=== PATIENT | female | born 2005 | race Caucasian/White ===

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

== ENCOUNTER 2024-02-25 13:15 | Outpatient (REF) | payer MEDICAID, SELFPAY ==
--- NOTE | ~2024-02-25 | US_ITS ---
EXAMINATION: US DIAGNOSTIC ULTRASOUND BREAST, BILATERAL CLINICAL INFORMATION: 18-year-old female complaining of bilateral breast pain all over, worse behind the nipple regions . COMPARISON: 02/07/2019. TECHNIQUE: Ultrasound of both breasts was performed with real-time qureshi scale imaging and color Doppler. All 4 quadrants of both breasts was the retroareolar regions were scanned. FINDINGS: There is no focal suspicious finding. There is no solid mass, architectural abnormality, duct ectasia, or edema in the soft tissue planes. There are no cystic abnormalities. US/US breast BI limited mamm only IMPRESSION: Normal bilateral breast ultrasound. No ultrasound findings present to explain patient's symptomatology. Recommend clinical management. ASSESSMENT: BI-RADS 1: Negative RECOMMENDATION: 1. Patient should be managed based on the clinical impression.
== END 2024-02-25 13:16 | disposition home or self-care (01) ==
LOC: HO.MAMMO 13:15
PROVIDERS: PCP Family Medicine; Visit Provider Family Medicine
DX: N64.4 Mastodynia (principal)
CPT/HCPCS: 76642

== ENCOUNTER → 2024-02-25 13:18 | Outpatient (BNV) | payer MEDICAID, SELFPAY | PROVIDERS: PCP Family Medicine; Visit Provider Radiology Diagnostic Radiology | DX: N64.4 Mastodynia (principal) | CPT/HCPCS: 76641 ==

== ENCOUNTER 2024-06-08 16:19 | Outpatient (REF) | payer MEDICAID, SELFPAY ==
[2024-06-09 03:10] LABS: CT PCR NOT DETECTED (Not Detect.); NG PCR NOT DETECTED (Not Detect.)
== END 2024-06-08 16:20 | disposition home or self-care (01) ==
LOC: HO.HHCLNP 16:19
PROVIDERS: Visit Provider Advanced Practice Midwife
DX: Z11.3 Encounter for screening for infections with a predominantly sexual mode of transmission (principal)
CPT/HCPCS: 87491; 87591

== ENCOUNTER 2024-07-25 11:34 | Emergency (ER) | payer MEDICAID, SELFPAY ==
--- NOTE | ~2024-07-25 | XR_ITS ---
EXAMINATION: XR ANKLE, LEFT CLINICAL INFORMATION: Left-sided ankle pain COMPARISON: None available. TECHNIQUE: AP, lateral, and mortise views of the left ankle. FINDINGS: No fracture. Alignment is anatomic. No erosions. Joint spaces are maintained. Soft tissues are normal. XR/XR ankle LT min 3V IMPRESSION: No radiographic evidence of acute fracture or dislocation. Electronically signed by: Melissa Rosales MD 07/25/2024 02:18 PM EDT
--- NOTE | 2024-07-25 12:00 | ED_ITS ---
HPI - General Adult General Chief complaint: Extremity Injury, Lower Stated complaint: Ankle injury Time Seen by Provider: 07/25/24 12:28 Source: patient Mode of arrival: wheelchair Limitations: no limitations History of Present Illness ED Provider: Ny Jacobsen PA-C HPI narrative: 18 yo female presents to the ER for evaluation of left ankle pain and swelling after you tripped down 2 stairs yesterday at 15:00. She states she has been unable to ambulate on the ankle since then. She reports pain to both the inside and outside portions of her ankle. She denies any bruising or discoloration. She denies any foot pain, numbness or weakness. The pain in the foot is worse with plantar and dorsiflexion. She has not taken any medications for the pain. No other injuries MD complaint: Left ankle pain Onset (ago): day(s) (1) Location: left and lower extremity Radiation: non-radiation Severity: severe Quality: aching Pain Consistency: constant Relieving factors: immobilization and rest Exacerbating factors: movement Associated symptoms: denies other symptoms Treatments prior to arrival: none Related Data Previous Rx's ?Medication ?Instructions ?Recorded ibuprofen 600 mg tablet 600 mg PO Q8H PRN fever or pain 07/25/24 #14 tabs Allergies Allergy/AdvReac Type Severity Reaction Status Date / Time ondansetron Allergy Mild RASH Verified 07/25/24 12:04 [From ZOFRAN ( HYDROCHLORIDE)] amoxicillin [AMOXICILLIN] Allergy Unknown RASH Verified 07/25/24 12:04 Penicillins [PCN] Allergy Unknown RASH Verified 07/25/24 12:04 Review of Systems Review of Systems: Yes all other systems are reviewed and are negative [facility] Social History Social History Advance Directives: No Advance Directives Information Provided: No Do you have a plan to hurt others: No Plan Physical Exam ED Vital Signs: Vital Signs - 24 hr 07/25/24 12:01 07/25/24 14:08 07/25/24 14:54 Temperature 98.1 F 0 F L Pulse Rate 81 79 79 Respiratory Rate 18 16 16 Blood Pressure 125/63 112/83 112/83 Pulse Oximetry 99 100 100 Oxygen Delivery Method Room Air Room Air Room Air BMI result Body Mass Index 32.2 Appearance: Alert. Oriented X3. No acute distress. HEENT: normal inspection CVS: Normal heart rate and rhythm. Pulses normal. Respiratory: No respiratory distress. Skin: Skin warm and dry. Normal skin color. Normal skin turgor. No rashes. Extremities: Mild swelling of the ankle joint, mild tenderness of the medial malleolus and above the calcaneus there is a small area of soft tissue swelling and tenderness. No ecchymosis. No gross deformity. Foot is warm and well perfused. Nontender metatarsals. Pain with plantar flexion and dorsiflexion. Neuro: Oriented X 3. No motor deficit. No sensory deficit. Gait not tested due to pain Course Course Course Narrative: This is an RME done by LAZARA Samaniego: Additional HPI, ROS, PE not included below will be deferred to primary provider. 18 year old female with concerns of left- sided ankle pain (07/08) after catching herself falling downstairs yesterday afternoon with a/c numbness and tingling. Appearance: Alert.? Oriented X3.? No acute distress.?Presenting in wheelchair Head: Normocephalic, atraumatic, no step-offs or deformities Neck: Normal inspection.? Neck supple.? CVS: Normal heart rate and rhythm.? Pulses normal.? Respiratory: No respiratory distress.? Breath sounds normal.? Abdomen: Soft and nontender.? Skin: Skin warm and dry.? Normal skin color.? Normal skin turgor.? Extremities: No lower extremity edema.? No calf ttp. 5/5 strength to bilateral upper and lower extremities; Neuro: Oriented X 3.? No motor deficit.? No sensory deficit. CN 2-12 intact. Medical Decision Making Medical Decision Making MDM Narrative: 18-year-old female presents to the ER for evaluation of left ankle pain after she tripped down 2 stairs yesterday, twisting her ankle. Severe pain with ambulation since. She has some [id number] swelling on examination without any point tenderness or gross deformity. She is neurovascularly intact although reports pain with plantar and dorsiflexion. X-ray today does not show any acute fractures. She was placed in an Alex wrap and provided crutches for ankle sprain. NSAIDs sent to her pharmacy. Discussed rest, ice, compression, elevation and need for follow-up as needed. Stable for discharge home. Differential Diagnosis Differential Diagnoses: The differential diagnosis associated with the presentation includes Ankle sprain, ankle sprain, ankle fracture, foot fracture, foot contusion Independent Interpretation I performed an independent interpretation of an: Plain X-Ray Interpretation: No acute fracture Radiology Impression Discussion of test interpretation with radiology: I have reviewed the radiologist's reading. Radiologist Impression: EXAMINATION: XR ANKLE, LEFT CLINICAL INFORMATION: Left-sided ankle pain COMPARISON: None available. TECHNIQUE: AP, lateral, and mortise views of the left ankle. FINDINGS: No fracture. Alignment is anatomic. No erosions. Joint spaces are maintained. Soft tissues are normal. XR/XR ankle LT min 3V IMPRESSION: No radiographic evidence of acute fracture or dislocation. External Record Review External record reviewed: Prior outpatient radiology Prescription Management I considered prescription management with: Pain Medication Critical Care Time Critical Care Time Critical Care Time: No Discharge Plan Discharge Clinical Impression: Ankle sprain and strain Patient Disposition: Home, Self-Care Instructions: Ankle Sprain (DC) Additional Instructions: Your x-ray today was normal. Rest your ankle and elevate your foot when possible. Recommend ALEX wrap for support and compression. Use ice several times per day for the next 48 hours. You may bear weight as tolerated. If pain is too severe, use crutches until better. Take Motrin and/or Tylenol as needed for pain. Follow up with your doctor as needed. Prescriptions: New ibuprofen 600 mg tablet 600 mg PO Q8H PRN (Reason: fever or pain) Qty: 14 0RF Referrals: Tracy Saldana DO [Primary Care Provider] - Stand Alone Forms: Work/School Release Interventions: ED Discharge Assessment Last Done: 07/25/24 14:54 Discharge Date/Time: 07/25/24 14:54 Print Language: Sri Lankan
[2024-07-25 12:01] VITALS: BP 125/63; PULSE 81; RESP 18; TEMP 36.7; O2SAT 99; BMI 32.2
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
[2024-07-25 14:08] VITALS: BP 112/83; PULSE 79; RESP 16; O2SAT 100
[2024-07-25 14:54] VITALS: BP 112/83; PULSE 79; RESP 16; TEMP -17.7; TEMP 0; O2SAT 100
== END 2024-07-25 14:54 | disposition home or self-care (01) ==
PROVIDERS: Emergency Provider Emergency Medicine Emergency Medical Services; PCP Family Medicine
DX: S93.402A Sprain of unspecified ligament of left ankle, initial encounter (principal); M25.572 Pain in left ankle and joints of left foot; X50.1XXA Overexertion from prolonged static or awkward postures, initial encounter; Y93.89 Activity, other specified; Y92.89 Other specified places as the place of occurrence of the external cause; Y99.8 Other external cause status
CPT/HCPCS: 73610; 99283

== ENCOUNTER 2024-07-27 11:32 | Outpatient (REF) | payer MEDICAID, SELFPAY ==
--- NOTE | ~2024-07-27 | XR_ITS ---
EXAMINATION: XR FOOT, LEFT CLINICAL INFORMATION: Left foot injury with fall from 4 feet with pain and swelling of the distal medial foot COMPARISON: None available. TECHNIQUE: AP, lateral, and oblique views of the left foot. FINDINGS: The bones and soft tissues are normal. No fracture. Alignment is anatomic. Joint spaces are maintained. XR/XR foot LT min 3V IMPRESSION: Normal left foot. Electronically signed by: Irvin Nunez MD 07/27/2024 12:19 PM EDT
== END 2024-07-27 11:33 | disposition home or self-care (01) ==
LOC: HO.HHCX 11:32
PROVIDERS: Visit Provider Internal Medicine
DX: M79.672 Pain in left foot (principal)
CPT/HCPCS: 73630

== ENCOUNTER 2024-08-17 10:12 | Outpatient (AMB) | payer MEDICAID, SELFPAY ==
--- NOTE | 2024-08-17 10:15 | MHC.OFFVIS ---
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 Patient reports that she had jumps off of a couple of steps to avoid her from falling down the stairs. She presented to [facility] [place] ER the following day where xrays were taken and referred to orthopedics. Her pain is located at her achilles and she has an increase of pain with activity. She also has a tingling sensation. Finds some relief with ibuprofen. Allergies ondansetron [From ZOFRAN ( HYDROCHLORIDE)] Allergy (Mild, Verified 08/17/24 10:16) RASH amoxicillin [AMOXICILLIN] Allergy (Unknown, Verified 08/17/24 10:16) RASH Penicillins [PCN] Allergy (Unknown, Verified 08/17/24 10:16) RASH Medication List - Last Reconciled 08/17/24 by Shellie Pappas PA-C ibuprofen 600 mg PO Q8H PRN PFSH Social History (Updated 08/17/24 @ 10:17 by ARMANI Aguirre) Patient Tobacco Use Status: Never used Tobacco Current occupational status: employed Current occupation: [employer] Review of Systems Const All systems reviewed & are unremarkable except as noted in HPI and below Physical Exam Vital Signs: BMI result Body Mass Index 32.2 Const General: cooperative and no acute distress Orientation/consciousness: patient oriented x3 Resp Effort & Inspection: normal respiratory effort and able to speak in complete sentences Cardio Peripheral pulses: Peripheral pulses 2+ throughout Neuro General: patient oriented x3 Extrem Other: Left foot is normal to inspection there is mild tenderness over the anterior talofibular ligament no instability noted. She has tenderness over the insertion point of the Achilles onto the calcaneus there is no notable defect negative Baptiste's no tenderness over the medial or lateral malleolus neurovascularly intact Results Reviewed Results Reviewed: X-rays of the left foot and ankle obtained on 07/27 are negative for acute or chronic abnormalities. 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 She will return on 08/19 with limitations of no prolonged standing for more than 3 hours at a time she should also alternate with sitting duties if available. She will increase activities as tolerated and see me back as needed. Orders: Orders PT Evaluation and Treatment Today M76.62 - Achilles tendinitis, left leg, S93.402A - Sprain of unspecified ligament of left ankle, initial encounter Coding Level of Care Code New Pt Level 3 (63803) Complex EM visit Add On G2211 Diagnoses Achilles tendinitis of left lower extremity M76.62 Left ankle sprain S93.402A
[2024-08-17 10:22] VITALS: BMI 32.2
== END 2024-08-17 10:46 | disposition home or self-care (01) ==
PROVIDERS: PCP Family Medicine; Visit Provider Physician Assistant
DX: M76.62 Achilles tendinitis, left leg (principal); S93.402A Sprain of unspecified ligament of left ankle, initial encounter
CPT/HCPCS: 99203

== ENCOUNTER → 2024-08-17 10:12 | Outpatient (BNVA) | payer MEDICAID, SELFPAY | PROVIDERS: PCP Family Medicine; Visit Provider Physician Assistant | DX: M76.62 Achilles tendinitis, left leg (principal); S93.402A Sprain of unspecified ligament of left ankle, initial encounter; X50.1XXA Overexertion from prolonged static or awkward postures, initial encounter; Y93.01 Activity, walking, marching and hiking; Y92.9 Unspecified place or not applicable; Y99.9 Unspecified external cause status | CPT/HCPCS: 99212 ==

== ENCOUNTER 2025-02-26 08:17 | Emergency (ER) | payer MEDICAID, SELFPAY ==
--- NOTE | ~2025-02-26 | XR_ITS ---
EXAMINATION: XR CHEST 2 VIEWS HISTORY: cough COMPARISON: There are no prior studies for comparison. FINDINGS: PA and lateral views of the chest are submitted. The lungs are expanded and clear. There is no pleural effusion, pneumothorax, or pulmonary vascular congestion. The heart is normal in size. The bones are intact. XR/XR chest 2V IMPRESSION: Normal examination of the chest. Electronically signed by: Mynor Rivera MD 02/26/2025 10:21 AM EDT
[2025-02-26 08:21] VITALS: BP 122/78; PULSE 93; RESP 16; TEMP 36.8; O2SAT 99; BMI 32.4
[2025-02-26 09:09] LABS: IDNOW Serial# 55D5AD1C; Strep A Nucleic Acid Negative (Negative)
[2025-02-26 09:31] LABS: Influenza A PCR NEGATIVE (Negative); Influenza B PCR NEGATIVE (Negative); Resp Syncy Virus RNA Qual PCR NEGATIVE (Negative); SARS COV2 PCR INHOUSE NEGATIVE (Negative)
--- NOTE | 2025-02-26 09:36 | ED_ITS ---
HPI - General Adult General Chief complaint: General Medical Stated complaint: Sore Throat Chest Pain Time Seen by Provider: 02/26/25 09:35 Source: patient and family (patient's mother) Mode of arrival: ambulatory Limitations: no limitations History of Present Illness ED Provider: Justine Hickey PA-C HPI narrative: Patient is a 19 year old assigned female at with no reported medical history presenting to the emergency department today with a cough, fever, headache, body aches, nausea, vomiting, and sore throat. Patient states that over the last 4 days she has had a cough, intermittent fever, body aches, headache, sore throat, nausea, and vomiting. Patient denies any dizziness, lightheadedness, abdominal pain, blurry vision, double vision, loss of vision, chest pain, difficulty breathing, shortness of breath, back pain, night sweats, pain with urination, increased urinary frequency, increased urinary urgency, blood in her urine or stool, syncope or a near syncopal episode, recent trauma or falls, bowel incontinence, bladder incontinence, or any other complaints at this time. Onset (ago): day(s) (4) Relieving factors: none Exacerbating factors: none Associated symptoms: cough, fever/chills, headaches and nausea/vomiting Treatments prior to arrival: none Related Data Previous Rx's ?Medication ?Instructions ?Recorded ibuprofen 600 mg tablet 600 mg PO Q8H PRN fever or pain 07/25/24 #14 tabs Allergies Allergy/AdvReac Type Severity Reaction Status Date / Time ondansetron Allergy Mild RASH Verified 02/26/25 08:22 [From ZOFRAN ( HYDROCHLORIDE)] amoxicillin [AMOXICILLIN] Allergy Unknown RASH Verified 02/26/25 08:22 Penicillins [PCN] Allergy Unknown RASH Verified 02/26/25 08:22 iodine Allergy Hives Verified 02/26/25 08:23 Review of Systems Constitutional: Constitutional: Reports no additional constitutional complaints, Reports body ache(s), Denies chills, Reports fever(s), Reports headache(s) and Denies night sweats Eyes: Eyes: Reports no additional eye complaints, Denies blurry vision, Denies change in vision, Denies diplopia, Denies eye discharge, Denies loss of vision and Denies eye pain ENT: Denies dizziness, Reports headache(s) and Reports sore throat Cardiovascular: Cardiovascular: Reports no additional cardiovascular complaints, Denies chest pain, Denies lightheadedness, Denies Loss of Consciousness and Denies dyspnea Respiratory: Respiratory: Reports no additional respiratory complaints, Reports cough and Denies dyspnea Gastrointestinal: Gastrointestinal: Reports no additional gastrointestinal complaints, Denies abdominal pain, Denies melena, Denies hematochezia, Denies change in bowel habits, Denies change in stool character, Reports nausea and Reports vomiting Genitourinary: Genitourinary: Denies hematuria, Denies urinary frequency, Denies dysuria, Denies urinary incontinence, Denies urinary hesitancy and Denies urinary urgency Musculoskeletal: Musculoskeletal: Reports no additional musculoskeletal complaints, Denies numbness and Denies tingling Neurologic: Denies dizziness, Reports headache(s), Denies loss of vision, Denies numbness and Denies tingling Psychiatric: Psychiatric: Reports no additional psychiatric complaints Endocrine: Endocrine: Reports no additional endocrine complaints Hematologic/Lymphatic: Hematologic/Lymphatic: Reports no additional hematologic/lymphatic complaints Allergic/Immunologic: Allergic/Immunologic: Reports no additional allergic/immunologic complaints PMFSH Past Medical History Attestation statement: The following information was validated with the patient. (patient's mother validated all information) Source: old records reviewed, obtained from family (patient's mother provided additional history and confirmed the history provided by the patient.) and nursing notes reviewed Social History Social History Patient Tobacco Use Status: Never used Tobacco Current occupational status: employed Current occupation: [employer] Physical Exam ED Vital Signs: Vital Signs - 24 hr 02/26/25 08:21 02/26/25 11:40 Temperature 98.3 F 98.3 F Pulse Rate 93 93 Respiratory Rate 16 16 Blood Pressure 122/78 122/78 Pulse Oximetry 99 99 Oxygen Delivery Method Room Air Room Air BMI result Body Mass Index 32.4 Const General: cooperative, no acute distress, alert and awake Nutritional Appearance: well nourished Orientation/consciousness: patient oriented x3 Limitations: no limitations HENMT Head: Yes normal to inspection and Yes atraumatic Ears: hearing grossly normal bilaterally and external ears normal General nose exam: Normal external nose present, no nasal discharge noted and no epistaxis Face and sinus: Yes normal facial exam, No abrasion and No laceration Mouth: Normal oral and palatal mucosa present, no drooling and no muffled voice Eyes General: appearance normal, both eyes and all related structures Periorbital: periorbital findings normal Eyelids: Yes eyelids normal Conjunctivae: conjunctivae normal Pupils: Equal, round and reactive pupils present EOM: EOMs intact bilaterally Neck Neck: Yes normal visual inspection, Yes full ROM and Yes no lymphadenopathy Chest Chest palpation & inspection: normal inspection of the chest Resp Effort & Inspection: normal respiratory effort and able to speak in complete sentences GI Inspection: Yes normal to inspection Neuro General: patient oriented x3, moves all extremities and CN's II-XI intact bilaterally Cranial nerves: Yes Equal, round and reactive pupils present Cognition (Neuro): normal cognition Extrem General: Yes normal to inspection, Yes full ROM and Yes capillary refill normal Psych Appearance: grossly normal Mental Status: mental status grossly normal Affect: normal affect Attitude: cooperative Thought process: Normal thought process present Thought content: Normal thought content present Insight: Good insight present (Psych) Medications Administered Discontinued Medications Generic Name Dose Route Start Last Admin Trade Name Freq PRN Reason Stop Dose Admin Dexamethasone Sodium Phosphate 10 mg 02/26/25 09:56 02/26/25 10:04 Dexamethasone Sod Phosphate 10 Mg/Ml Vial PO 02/26/25 09:57 10 mg ONCE ONE Administration Medical Decision Making Medical Decision Making MDM Narrative: Patient is a 19 year old assigned female at with no reported medical history presenting to the emergency department today with a cough, fever, headache, body aches, nausea, vomiting, and sore throat. Patient's physical exam was unremarkable. Patient's COVID-19, influenza, RSV, strep, and mono testing was negative. Patient's chest x-ray showed no acute process. I explained my physical exam findings as well as all test results to the patient and the patient's mother. I answered all questions asked by the patient and the patient's mother. Patient's clinical presentation is most consistent with a viral illness. I stressed the importance of the patient taking her medication as directed (either prescribed or as the over the counter packaging recommends). I stressed the importance of the patient following up with her primary care provider. I stressed the importance of the patient returning to the emergency department immediately if her symptoms were to worsen or if she were to develop any dizziness, shortness of breath, difficulty breathing, chest pain, blurry vision, loss of vision, nausea, vomiting, abdominal pain, fever, chills, back pain, or any other complaints. Patient verbalized agreement and understanding with this treatment plan and discharge. Differential Diagnosis Differential Diagnoses: The differential diagnosis associated with the presentation includes Cough Headache Viral illness COVID-19 Influenza RSV Pharyngitis Strep pharyngitis Mononucleosis Admission/Observation Consideration of admission/observation: Escalation of care including admission/observation considered Patient would have been admitted to the hospital had her work up had any findings where hospital admission was appropriate and her clinical presentation warranted hospital admission. Lab Data [facility] Lab Attestation statement: I reviewed the patient's lab results. My interpretation of these results are in the [facility] Rationale portion of this note. Labs: Lab Results 02/26/25 02/26/25 Range/Units 08:45 10:22 Monoscreen Negative (Negative) Influenza Type A (PCR) NEGATIVE (Negative) Influenza Type B (PCR) NEGATIVE (Negative) RSV RNA Qual (PCR) NEGATIVE (Negative) SARS-CoV-2 RNA (RT-PCR) NEGATIVE (Negative) S. pyogenes GrpA LATRELL Negative (Negative) Independent Interpretation I performed an independent interpretation of an: Plain X-Ray Interpretation: My interpretation is in agreement with the radiologist's impression of this imaging study. EXAMINATION: XR CHEST 2 VIEWS HISTORY: cough COMPARISON: There are no prior studies for comparison. FINDINGS: PA and lateral views of the chest are submitted. The lungs are expanded and clear. There is no pleural effusion, pneumothorax, or pulmonary vascular congestion. The heart is normal in size. The bones are intact. XR/XR chest 2V IMPRESSION: Normal examination of the chest. Electronically signed by: Mynor Rivera MD 02/26/2025 10:21 AM EDT Dictated By: Mynor Rivera MD Signed By: Electronically signed by Mynor Rivera MD 02/26/25 1021 Radiology Impression Discussion of test interpretation with radiology: I have reviewed the radiologist's reading. Independent Historian Clinical information obtained from an independent historian. History obtained from or confirmed by: Parent (patient's mother provided additional history and confirmed the history provided by the patient.) Discharge Plan Discharge Clinical Impression: Upper respiratory infection, viral Patient Disposition: Home, Self-Care Instructions: Upper Respiratory Infection (DC), Viral Syndrome (ED) Additional Instructions: Your work up today was unremarkable. However, it is evident with your clinical presentation that you are suffering from a viral illness. Please continue to take tylenol + ibuprofen for your fever / body aches and stay hydrated with electrolyte containing fluid like Gatorade or Powerade. Follow up with your primary care provider. Return to the emergency department immediately if your symptoms worsen or if you develop any numbness, tingling, dizziness, shortness of breath, difficulty breathing, chest pain, blurry vision, loss of vision, nausea, vomiting, abdominal pain, fever, chills, back pain, or any other complaints. Please see the information below about our Patient Portal. If you are not yet enrolled in the [facility] Patient Portal, you will receive an enrollment email invitation following your visit to any [facility] setting. You may also self-enroll in the Patient Portal by visiting our website: [email or web address] The following information is required to access the Patient Portal: - Your [facility] [place] - Your personal home email address (must match what is in your electronic medical record, Registration staff can assist with this) - Name - Date of Capabilities of the Patient Portal: - Message some providers - View upcoming appointments - Access your health summary, medical history, and visit history - View current conditions and allergies - View procedure and lab results - View your medications, including guidelines, side effects, and precautions - Complete pre-appointment questionnaires requested by your provider - Ready summary reports of your office visits and procedures To access the Patient Portal Mobile [employer], follow these directions: - Search [employer] in the Daxa Store or Google Play Store - Download the Daxa - Search for [facility] - Enter your login/password Prescriptions: No Action ibuprofen 600 mg tablet 600 mg PO Q8H PRN (Reason: fever or pain) Qty: 14 0RF Referrals: Tracy Saldana DO [Primary Care Provider] - Stand Alone Forms: Work/School Release Interventions: ED Discharge Assessment Last Done: 02/26/25 11:40 Discharge Date/Time: 02/26/25 11:40 Print Language: Lithuanian
[2025-02-26] MEDS: dexAMETHasone sod phosphate 10 MG/ML VIAL PO (10:04)
[2025-02-26 11:00] LABS: Monotest Negative (Negative)
[2025-02-26 11:40] VITALS: BP 122/78; PULSE 93; RESP 16; TEMP 36.8; O2SAT 99
== END 2025-02-26 11:40 | disposition home or self-care (01) ==
PROVIDERS: Physician Assistant Medical; Emergency Provider Emergency Medicine; PCP Family Medicine
DX: J06.9 Acute upper respiratory infection, unspecified (principal); R05.9 Cough, unspecified; Z03.818 Encounter for observation for suspected exposure to other biological agents ruled out
CPT/HCPCS: 0241U; 36415; 71046; 86308; 87651; 99282; 99283; J1100

== ENCOUNTER → 2025-02-26 09:56 | Outpatient (BNV) | payer MEDICAID, SELFPAY | PROVIDERS: Emergency Provider Emergency Medicine; PCP Family Medicine; Visit Provider Radiology Diagnostic Radiology | DX: R05.9 Cough, unspecified (principal) | CPT/HCPCS: 71046 ==

== ENCOUNTER 2025-05-31 13:37 | Outpatient (REF) | payer MEDICAID, SELFPAY ==
--- OUTSIDE RECORDS SUMMARY | 2025-05-31 13:46 | XMS_ITS | Encounter Summary ---
Author Organization [employer] Address [address] [place] [address] Care Team Providers Care Banking Officer Name Role Phone Tracy Saldana DO Primary Care Provider Encounter Details Date Type Department Care Team ([facility] st Contact Info) Description 06/05/2024 Telephone [facility] [address] [place], [place] [phone] Tracy Saldana DO [address] [place], [place] [phone] Social History Tobacco Use Types Packs/Day Years Used Date Smoking Tobacco: Never Passive Smoke Exposure: Never Smokeless Tobacco: Never Alcohol Use Standard Drinks/Week Comments Never 0 (1 standard drink = 0.6 oz pur e alcohol) Depression Answer Date Recorded Patient Health Questionnaire-9 Score 5 02/18/2024 Patient Health Questionnaire-9 Score 5 02/18/2024 Last PHQ-9: Questionnaire Data Not on file 0 02/18/2024 Housing Stability Answer Date Recorded What is your housing situation today? I have [place] 02/09/[address] you li ve. Do you have problems with any of the following? None of the above 02/09/2024 Food Insecurity Answer Date Recorded Within the past 12 months, y ou worried that your food would run out before you got money to buy more: Never True 02/09/2024 Within the past 12 months,th e food you bought just didn't last and you didn't have enough money to get more: Never True Transportation Answer Date Recorded In the past 12 months, has l ack of transportation kept you from medical appts, meetings, work or from getting things needed for daily living? No 02/09/2024 Utilities Answer Date Recorded In the past 12 months, has t he electric, gas, oil or water company threatened to shut off services in your home? No 02/09/2024 Depression Answer Date Recorded Patient Health Questionnaire-2 Score 0 02/18/2024 Comments Unknown Sex and Gender Information Value Date Recorded Sex Assigned at Female 09/28/2022 10:25 AM EDT Legal Sex Female 10:25 AM EDT Gender Identity Female 09/28/2022 10:25 AM EDT Sexual Orientation Bisexual 09/28/2022 10 :25 AM EDT documented as of this encounter Miscellaneous Notes * Telephone Encounter - Mary Beth Jimenes - 06/05/2024 11:29 AM EDT Tc from pt requesting to get nexplanon removed . Jacqueline Georges pt. documented in this encounter Plan of Treatment Upcoming Encounters Date Type Department Care Team (Late st Contact Info) Description 06/04/2025 9:15 AM EDT Office Visit [facility] [address] [place] [address] Tracy Saldana DO [address] [place] [address] documented as of this encounter Visit Diagnoses Not on filedocumented in this encounter Additional Health Concerns Assessment Noted Time PHQ-9 Depression Total Score: 5 02/18/20 24 11:44 AM EDT documented as of this encounter Care Teams Banking Officer Relationship Specialty Start Date End Date Tracy Saldana DO [address] [place] [address] PCP - General Family Medicine 04/04/13 documented as of this encounter
== END 2025-05-31 13:38 | disposition home or self-care (01) ==
LOC: HO.LAB 13:37
PROVIDERS: PCP Family Medicine; Visit Provider Family Medicine
DX: Z32.01 Encounter for pregnancy test, result positive (principal)
CPT/HCPCS: 36415; 84702

== ENCOUNTER 2025-06-12 13:19 | Outpatient (REF) | payer MEDICAID, SELFPAY ==
--- OUTSIDE RECORDS SUMMARY | 2025-06-12 14:42 | XMS_ITS | Encounter Summary ---
Author Organization [employer] Address [address] [facility] [address] [place] [address] Care Team Providers Care Meeting/Event Planner Name Role Phone Tracy Saldana DO Primary Care Provider Encounter Details Date Type Department Care Team ([facility] st Contact Info) Description 06/05/2024 Telephone [facility] [address] [place], [place] [phone] Tracy Saldana DO [address] [place], [place] [phone] Social History Tobacco Use Types Packs/Day Years [...] documented in this encounter Plan of Treatment Not on file documented as of this encounter Visit Diagnoses Not on filedocumented in this encounter Additional Health Concerns Assessment Noted Time PHQ-9 Depression Total Score: 5 02/18/20 24 11:44 AM EDT documented as of this encounter Care Teams Meeting/Event Planner Relationship Specialty Start Date End Date Tracy Saldana DO [address] [place] [address] PCP - General Family Medicine 04/04/13 documented as of this encounter
[2025-06-12 16:25] LABS: MANUAL DIFF FLAG NO
[2025-06-12 16:30] LABS: Hematocrit 41.5 % (37.0-47.0); Hemoglobin 14.0 g/dl (12.0-16.0); Imm Gran Abs Auto 0.01 X10*3/uL (0.00-0.03); Imm Gran Pct Auto 0.2 % (0.0-0.4); Lymphocytes Absolute Auto 1.4 X10*3/uL (1.2-4.9); Mean Corpuscular HGB Conc 33.7 g/dl (31.0-35.0); Mean Corpuscular Hemoglobin 29.1 pg (27.0-33.0); Mean Corpuscular Volume 86.3 fL (80.0-98.0); NRBC Abs Auto 0.000 X10*3/uL (0.0-0.012); NRBC Pct Auto 0.0 /100WBC (0.0-0.2); Platelet Count 298 X10*3/uL (160-400); Red Blood Count 4.81 X10*6/uL (4.20-5.50); White Blood Count 4.1 X10*3/uL (4.8-10.8)
[2025-06-12 16:52] LABS: Alanine Aminotransferase 24 U/L (0-31); Albumin Level 4.8 g/dL (3.5-5.0); Alkaline Phosphatase 53 U/L (39-117); Anion Gap 12 (12-20); Aspartate Amino Transferase 27 U/L (5-31); Blood Urea Nitrogen 10 mg/dL (9-16); Calcium 9.5 mg/dL (8.4-10.2); Carbon Dioxide 28 mmol/L (22-29); Chloride 107 mmol/L (96-108); Cholesterol 168 mg/dL (<200); Estimated Glomerular Filt Rate > 60; HDL Cholesterol 44 mg/dL (>40); Potassium 4.6 mmol/L (3.3-5.1); Sodium 142 mmol/L (135-145); Total Protein 7.7 g/dL (6.5-8.0); Triglycerides 101 mg/dL (<150)
[2025-06-12 16:55] LABS: Hemoglobin A1C 129.9401 umol/L; Total Hemoglobin (HGBA1C) 3660.0814 umol/L
[2025-06-12 17:10] LABS: Free T4 (Free Thyroxine) 0.98 ng/dL (0.71-1.85); Thyroid Stimulating Hormone 1.22 uIU/mL (0.32-4.0)
[2025-06-12 22:17] LABS: CT PCR Urine NOT DETECTED (Not Detect.); NG PCR Urine NOT DETECTED (Not Detect.)
[2025-06-13 04:15] LABS: HBS Num1 0.02 mIU/mL (0-7.99); HBc Num1 0.08 S/CO (0.00-0.79); HBsAGNum1 0.40 S/CO (0.00-0.99); HIV Num 1 0.06 S/CO (0.00-0.99); Hepatitis B Surface Antigen Negative (Negative); ~HepC Num1 0.25 S/CO (0.00-0.79); ~Hepatitis B Surface Antibody NONREACTIVE (Nonreactive); ~Hepatitis C Antibody Nonreactive (Nonreactive)
[2025-06-15 04:11] LABS: ~Hepatitis A Antibody IgG 9.15 S/CO (0.00-0.99)
== END 2025-06-12 13:20 | disposition home or self-care (01) ==
LOC: HO.HHCL 13:19
PROVIDERS: PCP Family Medicine; Visit Provider Family Medicine
DX: Z00.00 Encounter for general adult medical examination without abnormal findings (principal); Z11.4 Encounter for screening for human immunodeficiency virus [HIV]; Z11.59 Encounter for screening for other viral diseases; G43.909 Migraine, unspecified, not intractable, without status migrainosus; J30.2 Other seasonal allergic rhinitis; H54.7 Unspecified visual loss; D72.819 Decreased white blood cell count, unspecified; F41.9 Anxiety disorder, unspecified; F32.A Depression, unspecified; Z68.32 Body mass index [BMI] 32.0-32.9, adult
CPT/HCPCS: 36415; 80048; 80061; 80076; 82306; 83036; 84439; 84443; 84702; 85025; 86592; 86704; 86706; 86708; 86803; 87340; 87389; 87491; 87591

== ENCOUNTER 2025-08-14 20:42 | Emergency (ER) | payer MEDICAID, SELFPAY ==
--- NOTE | ~2025-08-14 | XR_ITS ---
CLINICAL HISTORY: pain and decreased sensation post injury - pt unable to move L thumb at all. Left wrist three views Comparison: None provided Findings: Distal ulna is dorsally positioned relative to radius. This may indicate acute soft tissue injury. There is no widening of radial ulnar space. No acute bony abnormality is identified. No radiopaque foreign body noted. Impression: Dorsal position of the distal ulna Question soft tissue injury No acute bony abnormality This document has been electronically signed by: Geraldo Alcantara MD on 08/14/2025 22:54:57
--- NOTE | ~2025-08-14 | XR_ITS ---
CLINICAL HISTORY: pain and decreased sensation post injury - pt unable to move L thumb at all. Left hand three views Comparison: None provided Findings: Limited study due to bony overlap. Distal phalanges never well visualized. First and 2nd digits overlap on all images. No definite bony abnormality identified. Impression: Limited study due to positioning and overlap First and 2nd digits overlap on all images No acute abnormality on limited study This document has been electronically signed by: Geraldo Alcantara MD on 08/14/2025 22:54:02
[2025-08-14 20:56] VITALS: BP 111/69; PULSE 89; RESP 16; TEMP 36.4; O2SAT 98; BMI 29.3
[2025-08-14 21:29] LABS: UPreg QC Valid YES
--- OUTSIDE RECORDS SUMMARY | 2025-08-14 22:02 | XMS_ITS | Encounter Summary ---
Author Organization [employer] Address [address] [place] [address] Care Team Providers Care Cosmetologist Name Role Phone Tiarra Saldanafer Primary Care Provider Encounter Details Date Type Department Care Team (Late st Contact Info) Description 08/14/2025 Orders Only GENERIC EXTERNAL DATA DEPARTMENT Provider, Generic External Data Social History Tobacco Use Types Packs/Day Years Used Date Smoking Tobacco: Never Passive Smoke Exposure: Never Smokeless Tobacco: Never Alcohol Use Standard Drinks/Week Comments Yes 0 (1 standard drink = 0.6 oz pur e alcohol) oca Depression Answer Date Recorded Patient Health Questionnaire-9 Score 11 06/04/2025 Patient Health Questionnaire-9 Score 11 06/04/2025 Last PHQ-9: Questionnaire Data Not on file 0 06/04/2025 Housing Stability Answer Date Recorded What is your housing situation today? I have [address]ielle [place] 04/26/[address] you li ve. Do you have problems with any of the following? None of the above 04/26/2025 Food Insecurity Answer Date Recorded Within the past 12 months, y ou worried that your food would run out before you got money to buy more: Never True 04/26/2025 Within the past 12 months,th e food you bought just didn't last and you didn't have enough money to get more: Never True Transportation Answer Date Recorded In the past 12 months, has l ack of transportation kept you from medical appts, meetings, work or from getting things needed for daily living? No 06/04/2025 Utilities Answer Date Recorded In the past 12 months, has t he electric, gas, oil or water company threatened to shut off services in your home? No 04/26/2025 Depression Answer Date Recorded Patient Health Questionnaire-2 Score 3 06/04/2025 Internet Access Answer Date Recorded Internet Access Q1 Yes 04/26/2025 Internet Access Q2 Not on file 04/26/2025 Comments No Sex and Gender Information Value Date Recorded Sex Assigned at Female 09/28/2022 10:25 AM EDT Legal Sex Female 10:25 AM EDT Gender Identity Female 09/28/2022 10:25 AM EDT Sexual Orientation Bisexual 09/28/2022 10 :25 AM EDT documented as of this encounter Plan of Treatment Not on file documented as of this encounter Procedures Procedure Name Priority Date/Time Associated Diagnosis Comments HCG, QL, URINE Routine 08/14/2025 9:17 PM EDT documented in this encounter Results * HCG, Qualitative, Urine (08/14/2025 9:17 PM EDT) Urine NEGATIVE NEGATIVE [facility] Comment:This test was develo ped to detect early . Falsenegative results may occur after the 5th - 7th week ofpregnancy when using this test method. If clinicallyindicated, consider a serum hCG. 08/14/2025 9:17 PM EDT 08/14/2025 9:21 PM EDT us Generic External Data Provider LAB URINE ORDERAB LES Final Result [facility] [address] [place] [phone] documented in this encounter Visit Diagnoses Not on filedocumented in this encounter Additional Health Concerns Assessment Noted Time PHQ-9 Depression Total Score: 11 025 1:41 PM EDT documented as of this encounter Care Teams Cosmetologist Relationship Specialty Start Date End Date Tracy Saldana DO [address] [place] [id number] PCP - General Family Medicine 04/04/13 documented as of this encounter
--- OUTSIDE RECORDS SUMMARY | 2025-08-14 22:02 | XMS_ITS | Encounter Summary ---
Author Organization [employer] Address [address] [facility] [address] [place] [address] Care Team Providers Care Metal Drawer Name Role Phone Tracy Saldana DO Primary Care Provider [phone] Reason for Visit * Reason Onset Date Comments Med Refill 07/23/2025 Encounter Details Date Type Department Care Team ([facility] st Contact Info) Description 07/23/2025 Refill [facility] [address] [place], [place] [phone] Tracy Saldana DO [address] [place] [address] Social History Tobacco Use Types Packs/Day Years [...] documented as of this encounter Care Teams Metal Drawer Relationship Specialty Start Date End Date Tracy Saldana DO [address] [place] [id number] PCP - General Family Medicine 04/04/13 documented as of this encounter
--- OUTSIDE RECORDS SUMMARY | 2025-08-14 22:02 | XMS_ITS | Clinical Summary ---
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 EDT Tracy Saldana DO LAB BLOOD ORDERABLES Final R esult [facility] [address] [place] [address] [phone] * Hepatic Function Panel (06/12/2025 1:26 PM EDT) [facility] Bilirubin, Total 0.4 0.0 - 1.0 mg/dL [facility] Bilirubin, Direct 0.2 0.0 - 0.5 mg/dL [facility] Aspartate Amino Transferase 27 5 - 31 U/L [facility] Alanine Aminotransferase 24 0 - 31 U/L [facility] Total Protein 7.7 6.5 - 8.0 g/dL [facility] Albumin Level 4.8 3.5 - 5.0 g/dL [facility] Alkaline Phosphatase 53 39 - 117 U/L [facility] Blood Venous blood specimen / Unknown 06/12/2025 1:26 PM EDT 06/12/2025 4:19 PM EDT us Tracy Saldana DO LAB BLOOD ORDERABLES Final R esult [facility] [address] [place] [phone] * (ABNORMAL) Lipid Panel, Standard (06/12/2025 1:26 PM EDT) Triglycerides 101 <150 mg/dL [facility] Comment:Desirable Triglyceri de: less than 150 mg/dLBorderline High Triglyceride 150-199 mg/dLHigh Triglyceride: 200-499 mg/dLVery High Triglyceride: greater than or equal to 5OO mg/dL Cholesterol 168 <200 mg/dL [facility] Comment:Desirable Cholestero l: less than 200 mg/dLBorderline High Cholesterol: 200-239 mg/dLHigh Cholesterol: greater than 239 mg/dL LDL Cholesterol Calculated 104(H) <100 mg/dL [facility] Comment:Desirable LDL: less than 100 mg/dLNear Optimal/Above Optimal LDL: 110- 129 mg/dLBorderline High LDL: 130-159 mg/dLHigh LDL: 160-189 mg/dLVery High LDL: greater than or equal to 190 mg/dL HDL Cholesterol 44 >40 mg/dL [facility] Comment:Desirable HDL: great er than 40 mg/dL Note: This HDL assay may give artificially low results in patients with liver disease. Blood Venous blood specimen / Unknown 06/12/2025 1:26 PM EDT 06/12/2025 4:19 PM EDT Tracy Les DO LAB BLOOD ORDERABLES Final R esult Performing Organization Address [facility] de Phone Number [facility] [address] [place] [phone] * Basic Metabolic Panel (06/12/2025 1:26 PM EDT) Sodium 142 135 - 145 mmol/L [facility] Potassium 4.6 3.3 - 5.1 mmol/L [facility] Chloride 107 96 - 108 mmol/L [facility] Carbon Dioxide 28 22 - 29 mmol/L [facility] Anion Gap 12 12 - 20 [facility] Urea Nitrogen (BUN) 10 9 - 16 mg/dL [facility] Creatinine, Serum 0.99 0.5 - 1.4 mg/dL [facility] Estimated Glomerular Filt Rate >60 [facility] Comment:Chronic Kidney Disea se: Estimated GFR < 60 mL/min/1.74h1Pemdlt Kidney Disease: Estimated GFR < 15 mL/min/1.73m2 Glucose 98 60 - 115 mg/dL [facility] Calcium 9.5 8.4 - 10.2 mg/dL [facility] Blood Venous blood specimen / Unknown 06/12/2025 1:26 PM EDT 06/12/2025 4:19 PM EDT Tracy Edgarkerri DO LAB BLOOD ORDERABLES Final R esult Performing Organization Address [facility] Co de Phone Number [facility] [address] [place] [phone] * Chlamydia/N. Gonorrhoeae RNA, TMA, Urogenitial (06/08/2024 10:53 AM EDT) CT PCR NOT DETECTED Not Detect. [facility] Comment:A not detected test result does not exclude the possibilityof infection because test results can be affected byimproper specimen collection, concurrent antibiotic therapy,or the number of organisms in the specimen which may bebelow the sensitivity of the test. As with many diagnostictests, results from the Xpert CT/NG assay should beinterpreted in conjunction with other laboratory andclinical data available to the clinician.Xpert CT/NG performance has not been evaluated in patientsless than 14 years of age. The assay should not be used forthe evaluationof suspected sexual abuse or for other medico-legalindications. Additional testing is recommended in anycircumstance when false positive or false negative resultscould lead to adverse medical, social or psychologicalconsequences. NG PCR NOT DETECTED Not Detect. [facility] Comment:A not detected test result does not exclude the possibilityof infection because test results can be affected byimproper specimen collection, concurrent antibiotic therapy,or the number of organisms in the specimen which may bebelow the sensitivity of the test. As with many diagnostictests, results from the Xpert CT/NG assay should beinterpreted in conjunction with other laboratory andclinical data available to the clinician.Xpert CT/NG performance has not been evaluated in patientsless than 14 years of age. The assay should not be used forthe evaluationof suspected sexual abuse or for other medico-legalindications. Additional testing is recommended in anycircumstance when false positive or false negative resultscould lead to adverse medical, social or psychologicalconsequences. Urine (Urine, Random) 06/08/2024 10:53 AM EDT 06/08/2024 4:20 PM EDT Narrative [facility] - 06/09/2024 3:10 AM EDT Urine us Jacqueline Georges [facility] MICROBIOLOGY - GENERA L ORDERABLES Final Result [facility] [address] [place] [phone] from Last 3 Months or Most Recently Relevant to Health Maintenance Insurance [facility] C3 Care Teams Die Technician Relationship Specialty Start Date End Date Tracy Saldana DO [address] [place] [phone] PCP - General Family Medicine 04/04/13
--- OUTSIDE RECORDS SUMMARY | 2025-08-14 22:02 | XMS_ITS | Encounter Summary ---
Author Organization [employer] Address [address] [facility] [address] [place] [address] Care Team Providers Care [employer] Field Technician Name Role Phone Tracy Saldana DO Primary Care Provider Encounter Details Date Type Department Care Team ([facility] st Contact Info) Description 06/05/2024 Telephone [facility] [address] [place], [place] [phone] Tracy Saldana DO [address] [place], [place] [phone] Social History Tobacco Use Types Packs/Day Years [...] documented as of this encounter Care Teams [employer] Field Technician Relationship Specialty Start Date End Date Tracy Saldana DO [address] [place] [address] PCP - General Family Medicine 04/04/13 documented as of this encounter
--- OUTSIDE RECORDS SUMMARY | 2025-08-14 22:02 | XMS_ITS | Encounter Summary ---
Author Organization [employer] Address [address] [facility] [address] [place] [address] Care Team Providers Care Application Development Specialist Name Role Phone Tracy Saldana DO Primary Care Provider [phone] Reason for Visit * Reason Onset Date Comments Med Refill 07/24/2025 Encounter Details Date Type Department Care Team ([facility] st Contact Info) Description 07/24/2025 Refill [facility] [address] [place], [place] [phone] Tracy Saldana DO [address] [place], [place] [phone] Social History Tobacco Use Types Packs/Day Years [...] documented as of this encounter Care Teams Application Development Specialist Relationship Specialty Start Date End Date Tracy Saldana DO [address] [place] [phone] PCP - General Family Medicine 04/04/13 documented as of this encounter
--- NOTE | 2025-08-14 23:28 | ED_ITS ---
HPI - Extremity Problem General Chief complaint: Extremity Injury, Upper Stated complaint: ?L thumb dislocation Time Seen by Provider: 08/14/25 22:35 Source: patient, family, RN notes reviewed and old records reviewed Mode of arrival: ambulatory Limitations: no limitations History of Present Illness ED Provider: Maria Fernanda HPI Narrative: 19-year-old female presents for evaluation of left thumb pain. Patient reports that she was trying to break a frozen hamburger patties from a block of frozen patties. She reports that while trying to force the burger free she felt a popping sensation in her left thumb as her thumb bent backwards She believes that she dislocated the thumb She reports numbness to the entire thumb and difficulty moving it Related Data Previous Rx's ?Medication ?Instructions ?Recorded ibuprofen 600 mg tablet 600 mg PO Q8H PRN fever or p ain 07/25/24 #14 tabs Allergies Allergy/AdvReac Type Severity Reaction Status Date / Time ondansetron (From ZOFRAN ( Allergy Mild RASH Verified 08/14/25 20:57 HYDROCHLORIDE)) amoxicillin (AMOXICILLIN) Allergy Unknown RASH Verified 08/14/25 20:57 Penicillins (PCN) Allergy Unknown RASH Verified 08/14/25 20:57 iodine Allergy Hives Verified 08/14/25 20:57 Review of Systems Constitutional: Constitutional: Denies chills, Denies fever(s) and Denies headache(s) ENT: Denies headache(s) Musculoskeletal: Musculoskeletal: Reports arthralgias, Reports joint swelling and Reports limited range of motion Neurologic: Denies headache(s) [facility] Social History Social History Patient Tobacco Use Status: Never used Tobacco Smoked in Last 30 Days: No Use of substances other than those prescribed or required for medical reasons: No Advance Directives: No Advance Directives Information Provided: No Patient : No Current occupational status: employed Current occupation: [employer] Physical Exam Vital Signs: Vital Signs: Last Vital Signs Temp 97.6 F 08/14/25 20:56 Pulse 89 08/14/25 20:56 Resp 16 08/14/25 20:56 BP 111/69 08/14/25 20:56 Pulse Ox 98 08/14/25 20:56 O2 Del Method Room Air 08/14/25 20:56 BMI result Body Mass Index 29.3 Const: General: healthy appearing, comfortable, no acute distress, alert and awake Nutritional Appearance: well nourished Orientation/consciousness: patient oriented x3 HEENT: Head: Yes normocephalic and Yes atraumatic Eyes: Eyelids: Yes eyelids normal Conjunctivae: conjunctivae normal Sclerae: sclerae normal Corneas: corneas normal Pupils: Equal, round and reactive pupils present EOM: EOMs intact bilaterally Neck: Neck: Yes full ROM Resp: Effort & Inspection: normal respiratory effort, able to speak in complete sentences and not labored Skin: General skin exam: elasticity normal Neuro: General: patient oriented x3 Cranial nerves: Yes Equal, round and reactive pupils present and Yes Bilaterally intact EOM present Cognition (Neuro): normal cognition Extrem: Other: The patient has edema with ecchymosis to the base of the left thumb on the palmar surface. This area is exquisitely tender to palpation. She also has tenderness over the scaphoid region. She has a very limited range of motion of the both flexion and extension of the left wrist. Severely limited range of motion of the opposition of the left thumb. Distal sensation is dulled to the left thumb but gross sensation intact. Capillary refill intact. Medical Decision Making Medical Decision Making MDM Narrative: 19-year-old female presents for evaluation of left thumb pain after hyperextending injury. There was no fall or significant trauma. Her x-ray is negative for fracture or dislocation. On exam she is quite tender with ecchymosis and edema already. I suspect at the very least a sprain of the left thumb but a possible ligament injury and less likely scaphoid fracture. The patient be placed in a thumb spica splint and referred to Orthopedic surgery for follow up Differential Diagnosis Differential Diagnoses: The differential diagnosis associated with the presentation includes Thumb sprain Left wrist sprain Thumb dislocation Ligament tear Scaphoid fracture who less likely Lab Data Labs: Lab Results 08/14/25 Range/Units 21:17 Urine Test NEGATIVE (NEGATIVE) Independent Interpretation I performed an independent interpretation of an: Plain X-Ray Interpretation: Agree with Radiology interpretation, no obvious fracture Radiology Impression Discussion of test interpretation with radiology: I have reviewed the radiologist's reading. Radiologist Impression: Findings: Limited study due to bony overlap. Distal phalanges never well visualized. First and 2nd digits overlap on all images. No definite bony abnormality identified. Impression: Limited study due to positioning and overlap First and 2nd digits overlap on all images No acute abnormality on limited study This document has been electronically signed by: Geraldo Alcantara MD on 08/14/2025 22:54:02 Findings: Distal ulna is dorsally positioned relative to radius. This may indicate acute soft tissue injury. There is no widening of radial ulnar space. No acute bony abnormality is identified. No radiopaque foreign body noted. Impression: Dorsal position of the distal ulna Question soft tissue injury No acute bony abnormality This document has been electronically signed by: Geraldo Alcantara MD on 08/14/2025 22:54:57 Procedures Orthopedic Splinting/Casting Injury #1: Side: left Upper Extremity Injury Location: wrist and hand Upper Extremity Immobilizer: thumb spica Additional Comments: Patient placed in a thumb spica splint. She tolerated the procedure well, there were no complication. Postprocedure neurovascular status intact Discharge Plan Discharge Clinical Impression: Injury of left thumb Patient Disposition: Home, Self-Care Instructions: Sprain (ED) Additional Instructions: Your x-ray did not show any fracture or dislocation. In his possible that you have a bad sprain of the left thumb. It is also possible that you have a torn ligament Less likely a nondisplaced fracture However I recommend that you follow up with Orthopedics, you may require additional imaging if your pain does not improve You should remain in the splint, use ibuprofen/Tylenol for pain Prescriptions: No Action ibuprofen 600 mg tablet 600 mg PO Q8H PRN (Reason: fever or pain) Qty: 14 0RF Referrals: [facility] [Provider Group] Referral Note: left thumb sprain vs ligament injury vs nondisplaced fracture Stand Alone Forms: Work/School Release Interventions: ED Discharge Assessment Last Done: 08/14/25 23:36 Print Language: Latvian
[2025-08-14 23:36] VITALS: BP 111/69; PULSE 89; RESP 16; TEMP 36.4; O2SAT 98
== END 2025-08-14 23:37 | disposition home or self-care (01) ==
PROVIDERS: Emergency Provider Emergency Medicine; PCP Family Medicine
DX: S69.82XA Other specified injuries of left wrist, hand and finger(s), initial encounter (principal); X58.XXXA Exposure to other specified factors, initial encounter; Y93.9 Activity, unspecified; Y92.9 Unspecified place or not applicable; Y99.9 Unspecified external cause status; M79.645 Pain in left finger(s)
CPT/HCPCS: 73110; 73130; 81025; 99283; 99284

== ENCOUNTER → 2025-08-14 22:00 | Outpatient (BNV) | payer MEDICAID, SELFPAY | PROVIDERS: PCP Family Medicine; Visit Provider Radiology Diagnostic Radiology | DX: M79.642 Pain in left hand (principal); M25.532 Pain in left wrist | CPT/HCPCS: 73110; 73130 ==

== ENCOUNTER 2025-08-21 12:44 | Outpatient (AMB) | payer MEDICAID, SELFPAY ==
--- NOTE | 2025-08-21 13:23 | A.OFFVIS_ITS ---
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 Per emergency department report patient was attempting to separate a block of frozen meat resulting in her feeling a popping sensation in the left thumb as her thumb bent backwards. She was placed in a splint and referred to orthopedics. Today patient reports her pain radiates down from her thumb and wraps around her wrist. Complaints of shooting pain that travels up her forearm with movements of her arm. States numbness and tingling in her thumb, as well as her IF, however her IF has been improving. 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 She hyperextended her thumb when trying to separate frozen Hamburger patties, bending her thumb backwards and feeling a popping sensation. She was seen in the ED and placed in a splint. She says she discontinued her splint on 08/15/25, and was fitted for a new splint last night. She complains of pain at the base of her thumb, which extends into her wrist & forearm at times. She is hesitant to bend her thumb due to her pain. She also complains of new numbness in her thumb & index finger since her injury, but she says her index finger sensation has been improving slowly. 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 Review of Systems Const All systems reviewed & are unremarkable except as noted in HPI and below Physical Exam Vital Signs: BMI result Body Mass Index 29.3 Const General: cooperative, healthy appearing and no acute distress Orientation/consciousness: patient oriented x3 HEENT Head: Yes normocephalic and Yes atraumatic Eyes EOM: EOMs intact bilaterally Resp Effort & Inspection: normal respiratory effort and able to speak in complete sentences Cardio Jugular venous distension: no JVD Skin General skin exam: turgor normal Rashes: no rashes Neuro General: patient oriented x3 Extrem Other: Evaluation of Left Upper Extremity: The patient is alert, oriented, and in no acute distress Neuro: Dense numbness to the pad of the thumb. Normal sensation to all other digits. Vascular: Cap refill brisk ROM: She was very apprehensive to move any part of her hand or wrist today in clinic With encouagement she was able to make a fist and extend all her digits She was resistant to move her wrist, but with encouragement she could move through circumduction, though became somewhat tearful No locking or catching Skin: No lacerations or abrasions. General: She had thenar ecchymosis extending to the radial wrist No Erythema or evidence of infection. Using a 0-10 pain scale 6/10 dorsal central wrist 4/10 FCR tendon 6/10 RCL of thumb MCP joint 8-9/10 thenar aspect of hand, roughly over volar CMC joint Not tender over dorsum of thumb EPL & FPL tendons intact IP joint stable MCP joint: RCL & UCL stable, but with 6/10 pain when testing the radial collateral ligament Good thumb circumduction at basal joint, without evidence of instability After she tried to for a while she was able to flex extend and rotate her wrist carefully but without complaint of pain. Radiographs: 3 views of the left hand were taken and viewed by me today in clinic. They show no fractures or dislocations. Psych Appearance: grossly normal Affect: normal affect Attitude: cooperative Assessment & Plan Assessment & Plan (1) Left thumb sprain: Code(s): S63.602A - Unspecified sprain of left thumb, initial encounter Category: Medical (2) Left wrist sprain: Code(s): S63.502A - Unspecified sprain of left wrist, initial encounter Category: Medical (3) Numbness and tingling in left hand: Code(s): R20.0 - Anesthesia of skin; R20.2 - Paresthesia of skin Category: Medical Plan Assessment & Plan: 1. Left thumb sprain Primarily the basal joint & MCP joint DOI: 08/14/25 2. Left wrist sprain Since her injury, DOI: 08/14/25 3. Left thumb numbness Dense numbness to the pad of the thumb since her injury No lacerations I educated her about this condition I discussed non-operative treatment options I recommend activity modification, and she is in agreement I discussed activity modification, she should limit or avoid any heavy or repetitive pinching or gripping activities She was fitted for a comfort cool brace to wear with daily activity. 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 She says she cannot return to work with any restrictions. She was given a note for work to remain out of work for 4 weeks. Follow up in 3-4 weeks, no X-rays unless she has pain. Will re-evaluate sensation, and hopefully get her back to work at that time. Scribed for Betzy Atwood MD by Alex Dlegado, biomedical engineering technologist, on 08/21/25 at 1:45 PM, EST. Orders: Orders XR hand LT min 3V Today M79.642 - Pain in left hand OT Evaluation and Treatment Today R20.0 - Anesthesia of skin, R20.2 - Paresthesia of skin, S63.502A - Unspecified sprain of left wrist, initial encounter, S63.602A - Unspecified sprain of left thumb, initial encounter Coding Level of Care Code New Pt Level 3 (80597) Diagnoses Left thumb sprain S63.602A Left wrist sprain S63.502A Numbness and tingling in left hand R20.0; R20.2
[2025-08-21 13:32] VITALS: BMI 29.3
--- OUTSIDE RECORDS SUMMARY | 2025-08-21 15:39 | XMS_ITS | Encounter Summary ---
Author Organization [employer] Address [address] [facility] [address] [place] [address] Care Team Providers Care Bioinformatics Research Technician Name Role Phone Tracy Saldana DO Primary Care Provider [phone] Reason for Visit * Reason Onset Date Comments Med Refill 07/24/2025 Encounter Details Date Type Department Care Team ([facility] st Contact Info) Description 07/24/2025 Refill [facility] [address] [place], [place] [phone] Tracy Saldana DO [address] [place], [place] [phone] Social History Tobacco Use Types Packs/Day Years [...] documented as of this encounter Care Teams Bioinformatics Research Technician Relationship Specialty Start Date End Date Tracy Saldana DO [address] [place] [id number] PCP - General Family Medicine 04/04/13 documented as of this encounter
--- OUTSIDE RECORDS SUMMARY | 2025-08-21 15:39 | XMS_ITS | Encounter Summary ---
Author Organization [employer] Address [address] [facility] [address] [place] [address] Care Team Providers Care Computer Field Technician Name Role Phone Tracy Saldana DO Primary Care Provider [phone] Encounter Details Date Type Department Care Team ([facility] st Contact Info) Description 06/05/2024 Telephone [facility] MED[facility] [address] [place], [place] [phone] Tracy Saldana DO [address] [place], [place] [phone] Social History Tobacco Use Types Packs/Day Years [...] documented as of this encounter Care Teams Computer Field Technician Relationship Specialty Start Date End Date Tracy Saldana DO [address] [place] [address] PCP - General Family Medicine 04/04/13 documented as of this encounter
--- OUTSIDE RECORDS SUMMARY | 2025-08-21 15:39 | XMS_ITS | Clinical Summary ---
Author Organization [employer] Address [address] [facility] [address] [place] [address] Care Team Providers Care Ski Patroller Name Role Phone Tracy Saldana DO Primary Care Provider [phone] Allergies Active Allergy Reactions Criticality Noted Date [...] trial acupuncture -encouraged bra fitting -advised contact [facility] if no improvement Decreased visual acuity 02/18/2024 [...] DEPARTMENT Provider, Generic External Data 07/25/2025 Telephone [facility] [place] [address] Tracy Saldana DO Nurse Triage 07/24/2025 Refill [facility] [place] [address] Tracy Saldana DO 07/23/2025 Refill [facility] [place] [address] Tracy Saldana DO 06/12/2025 Orders Only [facility] [place] [address] Tracy Saldana DO 06/04/2025 9:15 AM EDT Office Visit [facility] [address] Tracy Saldana DO Routine history and physical examination of adult (Primary Dx); Leukopenia, unspecified type; Chronic migraine; Seasonal allergic rhinitis, unspecified trigger; Decreased visual acuity; Anxiety and depression; Positive urine test; BMI 32.0-32.9,adult 06/04/2025 Travel 05/30/2025 Travel 05/30/2025 Telephone [facility] [place] [address] Tracy Saldana DO Lab Orders 05/23/[address] [address] Tracy Saldana DO Chart Prep from Last [...] Procedure Name Priority Date/Time Associated Diagnosis Comments XR WRIST 3+ VIEWS LEFT Routine 08/14/2025 10:54 PM EDT XR HAND 3+ VIEWS LEFT Routine 08/14/2025 10:54 PM EDT HCG, QL, URINE Routine 08/14/2025 9:17 PM [...] Recently Relevant to Health Maintenance Results * XR Hand 3+ Views Left (08/14/2025 10:54 PM EDT) Anatomical Region Laterality Modality Upper Extremities, Hand Left Radiogra phic Imaging 08/14/2025 10:5 4 PM EDT Narrative 08/14/2025 10:55 PM EDT [address] [address] XRay Report Signed Patient: Lora Dumont MR#: [id number] 124 : 2005 Acct:[id number] Age/Sex: 19 / F ADM Date: 08/14/25 Loc: HO.ED Attending Dr: Ordering Physician: Generic ED Physician Date of Service: 08/14/25 Procedure(s): XR hand LT min 3V Accession Number(s): [id number] cc: Generic ED Physician; Tracy Saldana DO Reason for Exam: pain and decreased sensation post injury CLINICAL HISTORY: pain and decreased sensation post injury - pt unable to move L thumb at all. Left hand three views Comparison: None provided Findings: Limited study due to bony overlap. Distal phalanges never well visualized. First and 2nd digits overlap on all images. No definite bony abnormality identified. Impression: Limited study due to positioning and overlap First and 2nd digits overlap on all images No acute abnormality on limited study This document has been electronically signed by: Geraldo Alcantara MD on 08/14/2025 22:54:02 Dictated By: Geraldo Alcantara MD Signed By: <Electronically signed by Geraldo Alcantara MD in OV> 08/14/252254 DD/ 53 TD/TT: 08/14/252253 [employer] Machine: Procedure Note Donotuseinterpreter, Image - 08/14/[address] [address] XRay Report Signed Patient: Lora Dumont MMR#: [id number] 124 : 2005Acct:[id number] Age/Sex: 19 / FADM Date: 08/14/25 Loc: HO.ED Attending Dr: Ordering Physician: Generic ED Physician Date of Service: 08/14/25 Procedure(s): XR hand LT min 3V Accession Number(s): [id number] cc: Generic ED Physician; Tracy Saldana DO Reason for Exam: pain and decreased sensation post injury CLINICAL HISTORY: pain and decreased sensation post injury - pt unable tomove L thumb at all. Left hand three views Comparison: None provided Findings: Limited study due to bony overlap. Distal phalanges never well visualized. First and 2nd digits overlap on all images. No definite bony abnormality identified. Impression: Limited study due to positioning and overlap First and 2nd digits overlap on all images No acute abnormality on limited study This document has been electronically signed by: Geraldo Alcantara MD on 08/14/2025 22:54:02 Dictated By: Geraldo Alcantara MD Signed By: <Electronically signed by Geraldo Alcantara MD in OV> 08/14/252254 DD/ 53 TD/TT: 08/14/252253 Cruller Maker Machine: [facility] External Provider IMG XR PROCEDURES Edited Result - Final * XR Wrist 3+ Views Left (08/14/2025 10:54 PM EDT) Anatomical Region Laterality Modality Upper Extremities, Wrist Left Radiogr aphic Imaging 08/14/2025 10:5 4 PM EDT Narrative 08/14/2025 10:56 PM EDT [place] [address] XRay Report Signed Patient: Lora Dumont MR#: [id number] 124 : 2005 Acct:[id number] Age/Sex: 19 / F ADM Date: 08/14/25 Loc: .ED Attending Dr: Ordering Physician: Generic ED Physician Date of Service: 08/14/25 Procedure(s): XR wrist LT min 3V Accession Number(s): [id number] cc: Generic ED Physician; Tracy Saldana DO Reason for Exam: pain and decreased sensation post injury CLINICAL HISTORY: pain and decreased sensation post injury - pt unable to move L thumb at all. Left wrist three views Comparison: None provided Findings: Distal ulna is dorsally positioned relative to radius. This may indicate acute soft tissue injury. There is no widening of radial ulnar space. No acute bony abnormality is identified. No radiopaque foreign body noted. Impression: Dorsal position of the distal ulna Question soft tissue injury No acute bony abnormality This document has been electronically signed by: Geraldo Alcantara MD on 08/14/2025 22:54:57 Dictated By: Geraldo Alcantraa MD Signed By: <Electronically signed by Geraldo Alcantara MD in OV> 08/14/252255 DD/ 53 TD/TT: 08/14/252253 Cruller Maker Machine: Procedure Note Malcolm, Image - 08/14/[address] [address] XRay Report Signed Patient: Lora Dumont MMR#: [id number] 124 : 2005Acct:[id number] Age/Sex: 19 FADM Date: 08/14/25 Loc: .ED Attending Dr: Ordering Physician: Generic ED Physician Date of Service: 08/14/25 Procedure(s): XR wrist LT min 3V Accession Number(s): [id number] cc: Generic ED Physician; Tracy Saldana DO Reason for Exam: pain and decreased sensation post injury CLINICAL HISTORY: pain and decreased sensation post injury - pt unable tomove L thumb at all. Left wrist three views Comparison: None provided Findings: Distal ulna is dorsally positioned relative to radius. This may indicate acute soft tissue injury. There is no widening of radial ulnar space. No acute bony abnormality is identified. No radiopaque foreign body noted. Impression: Dorsal position of the distal ulna Question soft tissue injury No acute bony abnormality This document has been electronically signed by: Geraldo Alcantara MD on 08/14/2025 22:54:57 Dictated By: Geraldo Alcantara MD Signed By: <Electronically signed by Geraldo Alcantara MD in OV> 08/14/252255 DD/ 53 TD/TT: 08/14/252253 Cruller Maker Machine: [facility] External Provider IMG XR PROCEDURES Edited Result - Final * HCG, Qualitative, Urine (08/14/2025 9:17 PM EDT) Urine NEGATIVE NEGATIVE [facility] Comment:This test was develo ped to detect early . Falsenegative results may occur after the 5th - 7th week ofpregnancy when using this test method. If clinicallyindicated, consider a serum hCG. 08/14/2025 9:17 PM EDT 08/14/2025 9:21 PM EDT us Generic External Data Provider LAB URINE ORDERAB LES Final Result [facility] [address] [place] [phone] * Chlamydia/Trichomonas/Neisseria gonorrhoeae, PCR, Urine (06/12/2025 1:29 PM EDT) CT PCR, Urine NOT DETECTED Not Detect. [facility] Comment:A not detected test result [...] NG PCR, Urine NOT DETECTED Not Detect. [facility] Comment:A not detected test result [...] 1:29 PM EDT 06/12/2025 4:10 PM EDT Tracy Saldana DO LAB URINE ORDERABLES Final R esult Performing Organization Address City/[facility]/ZIP Co de Phone Number [facility] [address] [place] [phone] [phone] * Vitamin D, 25-Hydroxy, Total, Immunoassay (06/12/2025 1:26 PM EDT) Vitamin D 25-OH Total 34.6 >30 ng/mL [facility] Comment: Health Based Reference Values*< 20 ng/mL Dqkkpaqgi32-16 ng/mL Insufficient> 30 ng/mL Sufficient*Adiel DOTSON. N [...] ORDERABLES Final R esult Performing Organization Address [facility]/ZIP Co de Phone Number [facility] [address] [place] [phone] * (ABNORMAL) CBC auto differential (06/12/2025 1:26 PM EDT) White Blood Count 4.1(L) 4.8 - 10.8 X10*3/uL [facility] Red Blood Count 4.81 4.20 - 5.50 X10*6/uL [facility] Hemoglobin 14.0 12.0 - 16.0 g/dl [facility] Hematocrit 41.5 37.0 - 47.0 % [facility] Mean Corpuscular Volume 86.3 80.0 - 98.0 fL [facility] Mean Corpuscular Hemoglobin 29.1 27.0 - 33.0 pg [facility] Mean Corpuscular HGB Conc 33.7 31.0 - 35.0 g/dl [facility] Red Cell Distribution Width 11.9 11.0 - 16.0 % [facility] Platelet Count 298 160 - 400 X10*3/uL [facility] Mean Platelet Volume 10.5 9.4 - 12.3 fL [facility] Neutrophils Percent Auto 55.2 45 - 73 % [facility] Imm Gran Pct Auto 0.2 0.0 - 0.4 % [facility] Lymphocytes Percent Auto 34.1 20 - 40 % [facility] Monocytes Percent Auto 8.6 2 - 11 % [facility] Eosinophils Percent Auto 1.2 0 - 4 % [facility] Basophils Percent Auto 0.7 0 - 2 % [facility] NRBC Pct Auto 0.0 0.0 - 0.2 /100WBC [facility] Neutrophils Absolute Auto 2.3 2.0 - 8.3 x10*3/uL [facility] Imm Gran Abs Auto 0.01 0.00 - 0.03 X10*3/uL [facility] Lymphocytes Absolute Auto 1.4 1.2 - 4.9 X10*3/uL [facility] Monocytes Absolute Auto 0.4 0.1 - 1.2 X10*3/uL [facility] Eosinophils Absolute Auto 0.1 0.0 - 0.4 X10*3/uL [facility] Basophils Absolute Auto 0.0 0.0 - 0.2 X10*3/uL [facility] NRBC Abs Auto 0.000 0.0 - 0.012 X10*3/uL [facility] Blood Venous blood specimen / Unknown 06/12/2025 1:26 PM EDT 06/12/2025 4:19 PM EDT Tracy Saldana DO LAB BLOOD ORDERABLES Final R esult Performing Organization Address City/[facility] Co de Phone Number [facility] [address] [place] [phone] * Hepatitis C Antibody with Reflex to HCV, RNA, Quantitative, Real-Time PCR (06/12/2025 1:26 PM EDT) Hepatitis C Antibody Nonreactive Nonreactive [facility] Comment:Antibodies to HCV no t detected; does not exclude early acuteHCV infection. Blood Venous blood specimen / Unknown 06/12/2025 1:26 PM EDT 06/12/2025 4:19 PM EDT Tracy Saldana DO LAB BLOOD ORDERABLES Final R esult Performing Organization Address [facility] Co de Phone Number [facility] [address] [place] [phone] * Hepatitis A Antibody, Total (06/12/2025 1:26 PM EDT) Hepatitis A Antibody IgG REACTIVE Nonreactive [facility] Comment:The presence of IgG anti-HAV implies past HAV infection(recent or distant) or vaccination against HAV. Blood Venous blood specimen / Unknown 06/12/2025 1:26 PM EDT 06/12/2025 4:19 PM EDT Tracy Saldana DO LAB BLOOD ORDERABLES Final R esult Performing Organization Address City/[facility]/ZIP Co de Phone Number [facility] [address] [place] [phone] * Hepatitis B surface antigen, EIA (06/12/2025 1:26 PM EDT) Pathologist [facility] Hepatitis B Surface Ag Negative Negative [facility] Blood Venous blood specimen / Unknown 06/12/2025 1:26 PM EDT 06/12/2025 4:19 PM EDT Tracy Saldana DO LAB BLOOD ORDERABLES Final R esult Performing Organization Address City/[facility]/ZIP Co de Phone Number [facility] [address] [place] [phone] * Hepatitis B Core Antibody, Total (06/12/2025 1:26 PM EDT) Pathologist [facility] Hepatitis B Core Antibody Nonreactive Nonreactive [facility] Blood Venous blood specimen / Unknown 06/12/2025 1:26 PM EDT 06/12/2025 4:19 PM EDT Tracy Saldana DO LAB BLOOD ORDERABLES Final R esult Performing Organization Address City/[facility]/ZIP Co de Phone Number [facility] [address] [place] [phone] * RPR (Monitor) with Reflex to??Titer (06/12/2025 1:26 PM EDT) Pathologist [facility] RPR (Monitor) w/Refl Titer NON-REACTI VE NON-REACT YASMANI [facility] Comment:THIS TEST WAS PERFOR MED AT:[facility] [place] [phone] KIRBY MD Rapid Plasma Reagin Ab Titer TNP [facility] Blood Venous blood specimen / Unknown 06/12/2025 1:26 PM EDT 06/12/2025 4:15 PM EDT Tracy Vazquezak [employer] LAB BLOOD ORDERABLES Final R esult Performing Organization Address [facility]/ZIP Co de Phone Number [facility] [address] [place] [phone] * HIV-1/2 Antigen and Antibodies, Fourth Generation, with Reflexes (06/12/2025 1:26 PM EDT) HIV AB/AG Nonreactive Nonreactive [facility] Comment:HIV-1 p24 Ag and/or HIV-1/HIV-2 Ab not detected.A test result that is nonreactive does not exclude thepossibility of exposure to or infection with HIV-1 and/orHIV-2. Nonreactive results in this assay for individualswith prior exposure to HIV-1 and/or HIV-2 may be due toantigen and antibody levels that are below the limit ofdetection of this assay.The [employer] HIV Ag/Ab Combo assay result andsupplemental assay results should be interpreted inconjunction with the patient's clinical presentation,history and other laboratory results. If the results areinconsistent with clinical evidence, additional testing issuggested to confirm the result. Blood Venous blood specimen / Unknown 06/12/2025 1:26 PM EDT 06/12/2025 4:19 PM EDT Tracy Les [employer] LAB BLOOD ORDERABLES Final R esult Performing Organization Address [facility]/ZIP Co de Phone Number [facility] [address] [place] [phone] * Hepatitis B Surface Antibody, Qualitative (06/12/2025 1:26 PM EDT) ~Hepatitis B Surface Antibody NONREACTIVE Nonreactive [facility] Comment:Nonreactive: < 8.00 mIU/mL Blood Venous blood specimen / Unknown 06/12/2025 1:26 PM EDT 06/12/2025 4:19 PM EDT Tracy Les IBARRA LAB BLOOD ORDERABLES Final R esult Performing Organization Address [facility] Co de Phone Number [facility] [address] [place] [phone] * hCG, Total, Quantitative (06/12/2025 1:26 PM EDT) Only the most recent of2 resultswithin the time period is included. HCG Quantitative <2 mIU/mL [facility] Comment:Weeks post LMP Appro ximate hCG(Last Menstrual Period) Range (mIU/ml)3 - 4 weeks 9 - 1304 - 5 weeks 75 - 2,6005 - 6 weeks 850 - 20,8006 - 7 weeks 4000 - 100,2007 - 12 weeks 11,500 - 289,46725 - 16 weeks 18,300 - 137,56158 - 29 weeks (2nd trimester) 1,400 - 53,60282 - 41 weeks (3rd trimester) 940 - 60,000The Hebert B- hCG assay is used for the [...] ORDERABLES Final R esult Performing Organization Address [facility] Co de Phone Number [facility] [address] [place] [phone] * TSH (06/12/2025 1:26 PM EDT) Thyroid Stimulating Hormone 1.22 0.32 - 4.0 uIU/mL [facility] Comment:TSH 3rd Generation ( [facility] [employer]) Blood Venous blood specimen / Unknown 06/12/2025 1:26 PM EDT 06/12/2025 4:19 PM EDT Tracy Saldana DO LAB BLOOD ORDERABLES Final R esult Performing Organization Address [facility]/ZIP Co de Phone Number [facility] [address] [place] [phone] * T4, Free (06/12/2025 1:26 PM EDT) Free T4 (Free Thyroxine) 0.98 0.71 - 1.85 ng/dL [facility] Blood Venous blood specimen / Unknown 06/12/2025 1:26 PM EDT 06/12/2025 4:19 PM EDT Tracy Saldana [employer] LAB BLOOD ORDERABLES Final R esult Performing Organization Address [facility] Co de Phone Number [facility] [address] [place] [phone] * Hemoglobin A1c (06/12/2025 1:26 PM EDT) Pathologist [facility] Hemoglobin A1c 5.4 <6.0 % [facility] Comment:Hemoglobin A1C Refer ence Range Adults: 4.8 - 6.0 % Non diabetic: < 6.0 % Goal: < 7.0 %Additional Action Suggested: > 8.0 %Note: Hemoglobin A1c results are invalid for patients with abnormal amounts of HbF. Blood transfusions may impact the HbA1c concentration in the patient sample. Estimated Average Glucose 108 mg/dL [facility] Comment:eAG = Estimated ave rage glucose which is %A1C expressed asaverage glucose, using the formula of the Q0W-LkglztyQqbgogy Glucose study (ADAG), Diabetes Care, Vol.31,#8,2007 Blood Venous blood specimen / Unknown 06/12/2025 1:26 PM EDT 06/12/2025 4:19 PM EDT Tracy Saldana [employer] LAB BLOOD ORDERABLES Final R esult Performing Organization Address [facility] Co de Phone Number [facility] [address] [place] [phone] * Hepatic Function Panel (06/12/2025 1:26 PM EDT) Bilirubin, Total 0.4 0.0 - 1.0 mg/dL [facility] Bilirubin, Direct 0.2 0.0 - 0.5 mg/dL [facility] Aspartate Amino Transferase 27 5 - 31 U/L [facility] Alanine Aminotransferase 24 0 - 31 U/L [facility] Total Protein 7.7 6.5 - 8.0 g/dL [facility] Albumin Level 4.8 3.5 - 5.0 g/dL [facility] Alkaline Phosphatase 53 39 - 117 U/L [facility] Blood Venous blood specimen / Unknown 06/12/2025 1:26 PM EDT 06/12/2025 4:19 PM EDT us Tracy Saldana DO LAB BLOOD ORDERABLES Final R esult [facility] [address] [place] [phone] * (ABNORMAL) Lipid Panel, Standard (06/12/2025 1:26 PM EDT) Pathologist [facility] Triglycerides 101 <150 mg/dL [facility] Comment:Desirable Triglyceri de: less than 150 mg/dLBorderline High Triglyceride 150-199 mg/dLHigh Triglyceride: 200-499 mg/dLVery High Triglyceride: greater than or equal to 5OO mg/dL Cholesterol 168 <200 mg/dL [facility] Comment:Desirable Cholestero l: less than 200 mg/dLBorderline High Cholesterol: 200-239 mg/dLHigh Cholesterol: greater than 239 mg/dL LDL Cholesterol Calculated 104(H) <100 mg/dL [facility] Comment:Desirable LDL: less than 100 mg/dLNear Optimal/Above Optimal LDL: 110- 129 mg/dLBorderline High LDL: 130-159 mg/dLHigh LDL: 160-189 mg/dLVery High LDL: greater than or equal to 190 mg/dL HDL Cholesterol 44 >40 mg/dL [facility] Comment:Desirable HDL: great er than 40 mg/dL Note: This HDL assay may give artificially low results in patients with liver disease. Blood Venous blood specimen / Unknown 06/12/2025 1:26 PM EDT 06/12/2025 4:19 PM EDT Tracy Saldana DO LAB BLOOD ORDERABLES Final R esult Performing Organization Address [facility]/ZIP Co de Phone Number [facility] [address] [place] [phone] * Basic Metabolic Panel (06/12/2025 1:26 PM EDT) Sodium 142 135 - 145 mmol/L [facility] Potassium 4.6 3.3 - 5.1 mmol/L [facility] Chloride 107 96 - 108 mmol/L [facility] Carbon Dioxide 28 22 - 29 mmol/L [facility] Anion Gap 12 12 - 20 [facility] Urea Nitrogen (BUN) 10 9 - 16 mg/dL [facility] Creatinine, Serum 0.99 0.5 - 1.4 mg/dL [facility] Estimated Glomerular Filt Rate >60 [facility] Comment:Chronic Kidney Disea se: Estimated GFR < 60 mL/min/1.41m7Xleypg Kidney Disease: Estimated GFR < 15 mL/min/1.73m2 Glucose 98 60 - 115 mg/dL [facility] Calcium 9.5 8.4 - 10.2 mg/dL [facility] Blood Venous blood specimen / Unknown 06/12/2025 1:26 PM EDT 06/12/2025 4:19 PM EDT Tracy Saldana DO LAB BLOOD ORDERABLES Final R esult Performing Organization Address [facility]/ZIP Co de Phone Number [facility] [address] [place] [phone] * Chlamydia/N. Gonorrhoeae RNA, TMA, Urogenitial (06/08/2024 10:53 AM EDT) CT PCR NOT DETECTED Not Detect. [facility] Comment:A not detected test result [...] psychologicalconsequences. NG PCR NOT DETECTED Not Detect. [facility] Comment:A not detected test result [...] AM EDT 06/08/2024 4:20 PM EDT Narrative [facility] - 06/09/2024 3:10 AM EDT Urine us Jacqueline Georges CNM LAB MICROBIOLOGY - GENERA L ORDERABLES Final Result [facility] [address] [place] [phone] from Last 3 Months or Most Recently Relevant to Health Maintenance Insurance [facility] C3 Care Teams Ski Patroller Relationship Specialty Start Date End Date Tracy Saldana DO [address] [place] [phone] PCP - General Family Medicine 04/04/13
--- OUTSIDE RECORDS SUMMARY | 2025-08-21 15:39 | XMS_ITS | Encounter Summary ---
Author Organization [employer] Address [address] [facility] 7 [place] [address] Care Team Providers Care Heavy Equipment Sales Associate Name Role Phone Tracy Saldana DO Primary Care Provider [phone] Reason for Visit * Reason Onset Date Comments Med Refill 07/23/2025 Encounter Details Date Type Department Care Team ([facility] st Contact Info) Description 07/23/[address] [facility] [address] [place], [place] [phone] Tracy Saldana DO [address] [place] [address] Social History Tobacco Use Types Packs/Day Years [...] documented as of this encounter Care Teams Heavy Equipment Sales Associate Relationship Specialty Start Date End Date Tracy Saldana DO [address] [place] [phone] PCP - General Family Medicine 04/04/13 documented as of this encounter
== END 2025-08-21 14:43 | disposition home or self-care (01) ==
LOC: HO.HOS 12:44
PROVIDERS: PCP Family Medicine; Visit Provider Orthopaedic Surgery
DX: S63.602A Unspecified sprain of left thumb, initial encounter (principal); S63.502A Unspecified sprain of left wrist, initial encounter; R20.0 Anesthesia of skin; R20.2 Paresthesia of skin
CPT/HCPCS: 99203

== ENCOUNTER → 2025-08-21 12:44 | Outpatient (BNVA) | payer MEDICAID, SELFPAY | PROVIDERS: PCP Family Medicine; Visit Provider Orthopaedic Surgery | DX: S63.602A Unspecified sprain of left thumb, initial encounter (principal); S63.502A Unspecified sprain of left wrist, initial encounter; R20.0 Anesthesia of skin; R20.2 Paresthesia of skin | CPT/HCPCS: 99202 ==

== ENCOUNTER → 2025-08-21 13:09 | Outpatient (BNV) | payer MEDICAID, SELFPAY | PROVIDERS: Visit Provider Radiology Diagnostic Radiology | DX: M79.642 Pain in left hand (principal) | CPT/HCPCS: 73130 ==

== ENCOUNTER 2025-08-22 09:29 | Outpatient (REF) | payer MEDICAID, SELFPAY ==
--- NOTE | ~2025-08-22 | XR_ITS ---
EXAMINATION: XR HAND, LEFT CLINICAL INFORMATION: M79.642 - Pain in left hand COMPARISON: None available. TECHNIQUE: Three views of the left hand. FINDINGS: The bones and soft tissues are normal. No fracture. Alignment is anatomic. Joint spaces are maintained. No erosions or soft tissue calcifications. XR/XR hand LT min 3V IMPRESSION: Unremarkable left hand. Electronically signed by: Triston Stevens MD 08/21/2025 01:24 PM EDT
== END 2025-08-22 09:30 | disposition home or self-care (01) ==
LOC: HO.HOSX 09:29
PROVIDERS: Visit Provider Orthopaedic Surgery
DX: M79.642 Pain in left hand (principal)
CPT/HCPCS: 73130

== ENCOUNTER 2025-09-12 09:45 | Outpatient (AMB) | payer MEDICAID, SELFPAY ==
[2025-09-12 09:57] VITALS: BMI 29.3
--- NOTE | 2025-09-12 09:57 | MHC.OFFVIS ---
Vital Signs 09/12/25 09:57 Height 5 ft 1 in Weight 155 lb BMI 29.3 Intake Visit Reasons: OV-Dislocation of left thumb-DOI 08/14/25 Intake Note: Lora 20 yr old right hand dominant female presents today for her follow up visit for her Left wrist sprain, since her injury, DOI: 08/14/25 and her left thumb numbness At her last visit she was advise she should limit or avoid any heavy or repetitive pinching or gripping activities, she was fitted for a comfort cool brace to wear with daily activity. 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 Patient stated she cannot return to work with any restrictions. She was given a note for work to remain out of work for 4 weeks. Today states has soreness but feels its gets better thriugh out the day. She has discontinues use of brace. Patient states she feels she is ready to return to work full duty. Allergies ondansetron (From ZOFRAN ( HYDROCHLORIDE)) Allergy (Mild, Verified 09/12/25 10:14) RASH amoxicillin (AMOXICILLIN) Allergy (Unknown, Verified 09/12/25 10:14) RASH Penicillins (PCN) Allergy (Unknown, Verified 09/12/25 10:14) RASH iodine Allergy (Verified 09/12/25 10:14) Hives HPI HPI OV-Dislocation of left thumb-DOI 08/14/25: Details: Lora is a 20 year old right hand dominant woman who presents for a left thumb sprain, DOI: 08/14/25. She hyperextended her thumb when trying to separate frozen Hamburger patties, bending her thumb backwards and feeling a popping sensation. She was seen in the ED and placed in a splint. She says she discontinued her splint on 08/15/25, and was fitted for a new splint last night. She says she is doing better and her pain has improved. She has some soreness but this improved throughout the day. She says this is primarily radial-sided wrist pain, which began only in the last few weeks, but is tolerable overall. She has discontinued her splint at this time. She says her sensation is now normal in her thumb & index finger, which she is happy about. 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 She feels she is ready to return to work without restrictions and would like to do so tomorrow. [facility] Social History Patient Tobacco Use Status: Never used Tobacco Current occupational status: employed Current occupation: [employer], right hand dominant Physical Exam Vital Signs: BMI result Body Mass Index 29.3 Extrem Other: Evaluation of Left Upper Extremity: The patient is alert, oriented, and in no acute distress Neuro: Normal sensation to the tips of all digits Vascular: Cap refill brisk ROM: She can make a fist and extend all her digits No locking or catching Full active thumb ROM, and can oppose her thumb to all digits & base of the small finger General: Mild tenderness over the 1st dorsal compartment Mildly positive Cuauhtemoc test on the left No tenderness over the basal joint, MCP, or IP joints of the thumb Assessment & Plan Assessment & Plan (1) Left thumb sprain: Code(s): S63.602A - Unspecified sprain of left thumb, initial encounter Category: Medical (2) Left wrist sprain: Code(s): S63.502A - Unspecified sprain of left wrist, initial encounter Category: Medical (3) De Quervain's tenosynovitis, left: Code(s): M65.4 - Radial styloid tenosynovitis [de Quervain] Category: Medical Plan Assessment & Plan: 1. Left thumb sprain Primarily the basal joint & MCP joint DOI: 08/14/25 Resolved 2. Left wrist sprain Since her injury, DOI: 08/14/25 Resolved 3. Left thumb numbness Resolved at this time 4. Left De Quervains tenosynovitis Mildly positive Cuauhtemoc test This is a new complaint today I educated her about these conditions She is not particularly bothersome by her tendinitis at this time I recommend activity modification, and she is in agreement I discussed activity modification, she should limit or avoid any heavy or repetitive pinching or gripping activities She will discontinue her splint at this time She should work on ROM exercises 20X daily. If her symptoms increase in frequency or severity she can follow up to discuss treatment options. 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 She says she cannot return to work with any restrictions and feels that she is ready to return to work without restrictions. She was given a note for work to return to full duty, without restrictions, effective 09/13/25 Follow up prn Scribed for Betzy Atwood MD by Alex Delgado, medical coordinator pesticide use, on 09/12/25 at 10:25 AM, EST. Coding Level of Care Code Est Pt Level 3 (98441) Diagnoses Left thumb sprain S63.602A Left wrist sprain S63.502A De Quervain's tenosynovitis, left M65.4
--- OUTSIDE RECORDS SUMMARY | 2025-09-12 11:14 | XMS_ITS | Encounter Summary ---
Author Organization [employer] Address [address] [facility] [address] [place] [address] Care Team Providers Care Survey Engineer Name Role Phone Tracy Saldana DO Primary Care Provider + [phone] Reason for Visit * Reason Onset Date Comments Med Refill 09/01/2025 Encounter Details Date Type Department Care Team ([facility] st Contact Info) Description 09/01/2025 Refill [facility] [address], [place] [phone] Tracy Saldana DO [address] [place] [address] Social History Tobacco Use Types Packs/Day Years [...] as of this encounter Plan of Treatment Upcoming Encounters Date Type Department Care Team (Late st Contact Info) Description 09/13/2025 1:45 PM EDT Office Visit [facility] [address] [place] [address] Jacqueline Georges CNM [address] [place] [address] documented as of this encounter Visit Diagnoses Not on filedocumented in this encounter Additional Health Concerns Assessment Noted Time PHQ-9 Depression Total Score: 11 025 1:41 PM EDT documented as of this encounter Care Teams Survey Engineer Relationship Specialty Start Date End Date Tracy Saldana DO [address] [place] [address] PCP - General Family Medicine 04/04/13 documented as of this encounter
--- OUTSIDE RECORDS SUMMARY | 2025-09-12 11:14 | XMS_ITS | Encounter Summary ---
Author Organization [employer] Address [address] [facility] [address] [place] [address] Care Team Providers Care Data Miner Name Role Phone Tracy Saldana DO Primary Care Provider Encounter Details Date Type Department Care Team ([facility] st Contact Info) Description 06/05/2024 Telephone [facility] [address] [place], [place] [phone] Tracy Saldana DO [address] [place], [place] [phone] Social History Tobacco Use Types Packs/Day Years [...] Description 09/13/2025 1:45 PM EDT Office Visit [facility] [address], [place] [phone] Jacqueline Georges CNM [address] [place] [address] documented as of this encounter Visit Diagnoses Not on filedocumented in this encounter Additional Health Concerns Assessment Noted Time PHQ-9 Depression Total Score: 5 02/18/20 24 11:44 AM EDT documented as of this encounter Care Teams Data Miner Relationship Specialty Start Date End Date Tracy Saldana DO [address] [place], [place] [phone] PCP - General Family Medicine 04/04/13 documented as of this encounter
--- OUTSIDE RECORDS SUMMARY | 2025-09-12 11:14 | XMS_ITS | Clinical Summary ---
Author Organization [employer] Address [address] [facility] [address] [place] [address] Care Team Providers Care Licensed Massage Practitioner Name Role Phone Tracy Saldana DO Primary [...] trial acupuncture -encouraged bra fitting -advised contact [facility] if no improvement Decreased visual acuity 02/18/2024 [...] disorder 11/26/2022 02/18/2024 Migraine with aura 03/11/2022 3 Encounters Date Type Department Care Team Description 09/03/2025 Refill [facility] MEDICINE [address] [place] [address] Tracy Saldana DO 09/01/2025 Refill [facility] [address] [place] [address] Tracy Saldana DO 08/14/2025 Orders Only GENERIC EXTERNAL DATA DEPARTMENT Provider, Generic External Data 07/25/2025 Telephone [facility] [address] [place] [address] Tracy Saldana DO Nurse Triage 07/24/2025 Refill [facility] [address] [place] [address] Tracy Saldana DO 07/23/2025 Refill [facility] [address] [place] [address] Tracy Saldana DO 06/12/2025 Orders Only [facility] [address] [place] [address] Tracy Saldana, from Last 3 Months Immunizations Immunization Administration [...] 06/04/2025 9:39 AM EDT Plan of Treatment Upcoming Encounters Date Type Department Care Team (Late st Contact Info) Description 09/13/2025 1:45 PM EDT Office Visit [facility] [address] [place] [address] Jacqueline Georges CNM [address] [place] [address] Health Maintenance Due Date Last Done Comments [...] and depression Positive urine test BMI 32.0-32.9,adult CHLAMYDIA/N. GONORRHOEAE RNA, TMA, UROGENITAL Routine 06/08/2024 10:53 AM EDT Encntr screen for infections w sexl mode of transmiss from Last 3 Months or Most Recently Relevant to Health Maintenance Results * XR Hand 3+ Views Left (08/14/2025 10:54 PM EDT) Anatomical Region Laterality Modality Upper Extremities, Hand Left Radiogra phic Imaging 08/14/2025 10:5 4 PM EDT Narrative 08/14/2025 10:55 PM EDT [place] [address] XRay Report Signed Patient: Lora Dumont MR#: [id number] 124 : 2005 Acct:[id number] Age/Sex: 19 / F ADM Date: 08/14/25 Loc: HO.ED Attending Dr: Ordering Physician: Generic ED Physician Date of Service: 08/14/25 Procedure(s): XR hand LT min 3V Accession Number(s): [id number] cc: Generic ED Physician; Tracy Saldana DO [...] in OV> 08/14/252254 DD/ 53 TD/TT: 08/14/252253 Optical Brightener Maker Helper: Procedure Note Donotuseinterpreter, Image - 08/14/2025 [place] [address] XRay Report Signed Patient: Lora Dumont MMR#: [id number] 124 : 2005Acct:[id number] Age/Sex: 19 / FADM Date: 08/14/25 Loc: HO.ED Attending Dr: Ordering Physician: Generic ED Physician Date of Service: 08/14/25 Procedure(s): XR hand LT min 3V Accession Number(s): [id number] cc: Generic ED Physician; Tracy Saldana DO [...] in OV> 08/14/252254 DD/ 53 TD/TT: 08/14/252253 Optical Brightener Maker Helper: us [facility] External Provider IMG XR PROCEDURES Edited Result - Final * XR Wrist 3+ Views Left (08/14/2025 10:54 PM EDT) Anatomical Region Laterality Modality Upper Extremities, Wrist Left Radiogr aphic Imaging 08/14/2025 10:5 4 PM EDT Narrative 08/14/2025 10:56 PM EDT [place] [address] XRay Report Signed Patient: Lora Dumont MR#: [id number] 124 : 2005 Acct:[id number] Age/Sex: 19 / F ADM Date: 08/14/25 Loc: HO.ED Attending Dr: Ordering Physician: Generic ED Physician Date of Service: 08/14/25 Procedure(s): XR wrist LT min 3V Accession Number(s): [id number] cc: Generic ED Physician; Tracy Saldana DO [...] in OV> 08/14/252255 DD/ 53 TD/TT: 08/14/252253 Optical Brightener Maker Helper: Procedure Note Donotuseinterpreter, Image - 08/14/[address] [address] XRay Report Signed Patient: Lora Dumont [facility]#: [id number] 124 : 2005Acct:[id number] Age/Sex: 19 / FADM Date: 08/14/25 Loc: HO.ED Attending Dr: Ordering Physician: Generic ED Physician Date of Service: 08/14/25 Procedure(s): XR wrist LT min 3V Accession Number(s): [id number] cc: Generic ED Physician; Tracy Saldana DO [...] in OV> 08/14/252255 DD/ 53 TD/TT: 08/14/252253 Optical Brightener Maker Helper: [facility] External Provider IMG XR PROCEDURES Edited Result - Final * HCG, Qualitative, Urine (08/14/2025 9:17 PM EDT) Urine NEGATIVE NEGATIVE [facility] Comment:This test was develo ped to detect early . Falsenegative results may occur after the 5th - 7th week ofpregnancy when using this test method. If clinicallyindicated, consider a serum hCG. 08/14/2025 9:17 PM EDT 08/14/2025 9:21 PM EDT us Generic External Data Provider LAB URINE ORDERAB LES Final Result [facility] [address] [place] [address] [phone] * Chlamydia/Trichomonas/Neisseria gonorrhoeae, PCR, Urine (06/12/2025 1:29 PM EDT) CT PCR, Urine NOT DETECTED Not Detect. [facility] Comment:A not detected test result [...] NG PCR, Urine NOT DETECTED Not Detect. [facility] Comment:A not detected test result [...] ORDERABLES Final R esult Performing Organization Address City/[facility]/ZIP Co de Phone Number [facility] [address] [place] [address] [phone] * Vitamin D, 25-Hydroxy, Total, Immunoassay (06/12/2025 1:26 PM EDT) Vitamin D 25-OH Total 34.6 >30 ng/mL [facility] Comment: Health Based Reference Values*< 20 ng/mL Cewwwuyiz28-98 ng/mL Insufficient> 30 ng/mL Sufficient*Adiel DOTSON. N [...] ORDERABLES Final R esult Performing Organization Address [facility]/ZIP Co de Phone Number [facility] [address] [place] [address] [phone] * (ABNORMAL) CBC auto differential (06/12/2025 1:26 PM EDT) White Blood Count 4.1(L) 4.8 - 10.8 X10*3/uL [facility] Red Blood Count 4.81 4.20 - 5.50 X10*6/uL [facility] Hemoglobin 14.0 12.0 - 16.0 g/dl [facility] Hematocrit 41.5 37.0 - 47.0 % [facility] Mean Corpuscular Volume 86.3 80.0 - 98.0 fL [facility] Mean Corpuscular Hemoglobin 29.1 27.0 - 33.0 pg [facility] Mean Corpuscular HGB Conc 33.7 31.0 - 35.0 g/dl [facility] Red Cell Distribution Width 11.9 11.0 - 16.0 % [facility] Platelet Count 298 160 - 400 X10*3/uL [facility] Mean Platelet Volume 10.5 9.4 - 12.3 fL [facility] Neutrophils Percent Auto 55.2 45 - 73 % [facility] Imm Gran Pct Auto 0.2 0.0 - 0.4 % [facility] Lymphocytes Percent Auto 34.1 20 - 40 % [facility] Monocytes Percent Auto 8.6 2 - 11 % [facility] Eosinophils Percent Auto 1.2 0 - 4 % [facility] Basophils Percent Auto 0.7 0 - 2 % [facility] NRBC Pct Auto 0.0 0.0 - 0.2 /100WBC [facility] Neutrophils Absolute Auto 2.3 2.0 - 8.3 x10*3/uL [facility] Imm Gran Abs Auto 0.01 0.00 - 0.03 X10*3/uL [facility] Lymphocytes Absolute Auto 1.4 1.2 - 4.9 X10*3/uL [facility] Monocytes Absolute Auto 0.4 0.1 - 1.2 X10*3/uL [facility] Eosinophils Absolute Auto 0.1 0.0 - 0.4 X10*3/uL [facility] Basophils Absolute Auto 0.0 0.0 - 0.2 X10*3/uL [facility] NRBC Abs Auto 0.000 0.0 - 0.012 X10*3/uL [facility] Blood Venous blood specimen / Unknown 06/12/2025 1:26 PM EDT 06/12/2025 4:19 PM EDT Tracy Les LAB BLOOD ORDERABLES Final R esult Performing Organization Address City/[facility]/ZIP Co de Phone Number [facility] [address] [place] [address] [phone] * Hepatitis C Antibody with Reflex to HCV, RNA, Quantitative, Real-Time PCR (06/12/2025 1:26 PM EDT) Hepatitis C Antibody Nonreactive Nonreactive [facility] Comment:Antibodies to HCV no t detected; does not exclude early acuteHCV infection. Blood Venous blood specimen / Unknown 06/12/2025 1:26 PM EDT 06/12/2025 4:19 PM EDT Tracy Les LAB BLOOD ORDERABLES Final R esult Performing Organization Address [facility] Co de Phone Number [facility] [address] [place] [address] [phone] * Hepatitis A Antibody, Total (06/12/2025 1:26 PM EDT) Pathologist [facility] Hepatitis A Antibody IgG REACTIVE Nonreactive [facility] Comment:The presence of IgG anti-HAV implies past HAV infection(recent or distant) or vaccination against HAV. Blood Venous blood specimen / Unknown 06/12/2025 1:26 PM EDT 06/12/2025 4:19 PM EDT Tracy Les LAB BLOOD ORDERABLES Final R esult Performing Organization Address City/[facility]/ZIP Co de Phone Number [facility] [address] [place] [address] [phone] * Hepatitis B surface antigen, EIA (06/12/2025 1:26 PM EDT) Hepatitis B Surface Ag Negative Negative [facility] Blood Venous blood specimen / Unknown 06/12/2025 1:26 PM EDT 06/12/2025 4:19 PM EDT Tracy Saldana DO LAB BLOOD ORDERABLES Final R esult Performing Organization Address [facility]/ZIP Co de Phone Number [facility] [address] [place] [phone] * Hepatitis B Core Antibody, Total (06/12/2025 1:26 PM EDT) Hepatitis B Core Antibody Nonreactive Nonreactive [facility] Blood Venous blood specimen / Unknown 06/12/2025 1:26 PM EDT 06/12/2025 4:19 PM EDT Tracy Saldana DO LAB BLOOD ORDERABLES Final R esult Performing Organization Address [facility] Co de Phone Number [facility] [address] [place] [phone] * RPR (Monitor) with Reflex to??Titer (06/12/2025 1:26 PM EDT) Pathologist [facility] RPR (Monitor) w/Refl Titer NON-REACTI VE NON-REACT YASMANI [facility] Comment:THIS TEST WAS PERFOR MED AT:[facility] [address] [id number] KIRBY MD Rapid Plasma Reagin Ab Titer TNP [facility] Blood Venous blood specimen / Unknown 06/12/2025 1:26 PM EDT 06/12/2025 4:15 PM EDT Tracy Saldana DO LAB BLOOD ORDERABLES Final R esult Performing Organization Address [facility] Co de Phone Number [facility] [address] [place] [phone] * HIV-1/2 Antigen and Antibodies, Fourth Generation, with Reflexes (06/12/2025 1:26 PM EDT) Pathologist [facility] HIV AB/AG Nonreactive Nonreactive [facility] Comment:HIV-1 p24 Ag and/or HIV-1/HIV-2 Ab not detected.A test result that is nonreactive does not exclude thepossibility of exposure to or infection with HIV-1 and/orHIV-2. Nonreactive results in this assay for individualswith prior exposure to HIV-1 and/or HIV-2 may be due toantigen and antibody levels that are below the limit ofdetection of this assay.[facility] HIV Ag/Ab Combo assay result andsupplemental assay results should be interpreted inconjunction with the patient's clinical presentation,history and other laboratory results. If the results areinconsistent with clinical evidence, additional testing issuggested to confirm the result. Blood Venous blood specimen / Unknown 06/12/2025 1:26 PM EDT 06/12/2025 4:19 PM EDT Tracy Saldana DO LAB BLOOD ORDERABLES Final R esult Performing Organization Address City/[facility]/ZIP Co de Phone Number [facility] [address] [place] [address] [phone] * Hepatitis B Surface Antibody, Qualitative (06/12/2025 1:26 PM EDT) Pathologist [facility] ~Hepatitis B Surface Antibody NONREACTIVE Nonreactive [facility] Comment:Nonreactive: < 8.00 mIU/mL Blood Venous blood specimen / Unknown 06/12/2025 1:26 PM EDT 06/12/2025 4:19 PM EDT Tracy Saladna [employer] LAB BLOOD ORDERABLES Final R esult Performing Organization Address City/[facility]/ZIP Co de Phone Number [facility] [address] [place] [phone] * hCG, Total, Quantitative (06/12/2025 1:26 PM EDT) HCG Quantitative <2 mIU/mL [facility] Comment:Weeks post LMP Appro ximate hCG(Last Menstrual Period) Range (mIU/ml)3 - 4 weeks 9 - 1304 - 5 weeks 75 - 2,6005 - 6 weeks 850 - 20,8006 - 7 weeks 4000 - 100,2007 - 12 weeks 11,500 - 289,94604 - 16 weeks 18,300 - 137,69252 - 29 weeks (2nd trimester) 1,400 - 53,98979 - 41 weeks (3rd trimester) 940 - [...] DO LAB BLOOD ORDERABLES Final R esult [facility] [address] [place] [phone] * TSH (06/12/2025 1:26 PM EDT) Thyroid Stimulating Hormone 1.22 0.32 - 4.0 uIU/mL [facility] Comment:TSH 3rd Generation ( [facility]) Blood Venous blood specimen / Unknown 06/12/2025 1:26 PM EDT 06/12/2025 4:19 PM EDT Tracy Saldana DO LAB BLOOD ORDERABLES Final R esult [facility] [address] [place] [phone] * T4, Free (06/12/2025 1:26 PM EDT) Pathologist [facility] Free T4 (Free Thyroxine) 0.98 0.71 - 1.85 ng/dL [facility] Blood Venous blood specimen / Unknown 06/12/2025 1:26 PM EDT 06/12/2025 4:19 PM EDT Tracy Saldana DO LAB BLOOD ORDERABLES Final R esult [facility] [address] [place] [phone] * Hemoglobin A1c (06/12/2025 1:26 PM EDT) [facility] Hemoglobin A1c 5.4 <6.0 % [facility] Comment:Hemoglobin A1C Refer ence Range Adults: 4.8 - 6.0 % Non diabetic: < 6.0 % Goal: < 7.0 %Additional Action Suggested: > 8.0 %Note: Hemoglobin A1c results are invalid for patients with abnormal amounts of HbF. Blood transfusions may impact the HbA1c concentration in the patient sample. Estimated Average Glucose 108 mg/dL [facility] Comment:eAG = Estimated ave rage glucose which is %A1C expressed asaverage glucose, using the formula of the B2A-NucyldmJjtjrul Glucose study (ADAG), Diabetes Care, Vol.31,#8,Jun. 2007 Blood Venous blood specimen / Unknown 06/12/2025 1:26 PM EDT 06/12/2025 4:19 PM EDT Tracy Saldana DO LAB BLOOD ORDERABLES Final R esult [facility] [address] [place] [phone] * Hepatic Function Panel (06/12/2025 1:26 PM EDT) [facility] Bilirubin, Total 0.4 0.0 - 1.0 mg/dL [facility] Bilirubin, Direct 0.2 0.0 - 0.5 mg/dL [facility] Aspartate Amino Transferase 27 5 - 31 U/L [facility] Alanine Aminotransferase 24 0 - 31 U/L [facility] Total Protein 7.7 6.5 - 8.0 g/dL [facility] Albumin Level 4.8 3.5 - 5.0 g/dL [facility] Alkaline Phosphatase 53 39 - 117 U/L [facility] Blood Venous blood specimen / Unknown 06/12/2025 1:26 PM EDT 06/12/2025 4:19 PM EDT us Tracy Saldana DO LAB BLOOD ORDERABLES Final R esult [facility] [address] [place] [phone] * (ABNORMAL) Lipid Panel, Standard (06/12/2025 1:26 PM EDT) Triglycerides 101 <150 mg/dL [facility] Comment:Desirable Triglyceri de: less than 150 mg/dLBorderline High Triglyceride 150-199 mg/dLHigh Triglyceride: 200-499 mg/dLVery High Triglyceride: greater than or equal to 5OO mg/dL Cholesterol 168 <200 mg/dL [facility] Comment:Desirable Cholestero l: less than 200 mg/dLBorderline High Cholesterol: 200-239 mg/dLHigh Cholesterol: greater than 239 mg/dL LDL Cholesterol Calculated 104(H) <100 mg/dL [facility] Comment:Desirable LDL: less than 100 mg/dLNear Optimal/Above Optimal LDL: 110- 129 mg/dLBorderline High LDL: 130-159 mg/dLHigh LDL: 160-189 mg/dLVery High LDL: greater than or equal to 190 mg/dL HDL Cholesterol 44 >40 mg/dL [facility] Comment:Desirable HDL: great er than 40 mg/dL Note: This HDL assay may give artificially low results in patients with liver disease. Blood Venous blood specimen / Unknown 06/12/2025 1:26 PM EDT 06/12/2025 4:19 PM EDT Tracy Les DO LAB BLOOD ORDERABLES Final R esult Performing Organization Address [facility] de Phone Number [facility] [address] [place] [phone] * Basic Metabolic Panel (06/12/2025 1:26 PM EDT) Sodium 142 135 - 145 mmol/L [facility] Potassium 4.6 3.3 - 5.1 mmol/L [facility] Chloride 107 96 - 108 mmol/L [facility] Carbon Dioxide 28 22 - 29 mmol/L [facility] Anion Gap 12 12 - 20 [facility] Urea Nitrogen (BUN) 10 9 - 16 mg/dL [facility] Creatinine, Serum 0.99 0.5 - 1.4 mg/dL [facility] Estimated Glomerular Filt Rate >60 [facility] Comment:Chronic Kidney Disea se: Estimated GFR < 60 mL/min/1.51t2Jkdhwd Kidney Disease: Estimated GFR < 15 mL/min/1.73m2 Glucose 98 60 - 115 mg/dL [facility] Calcium 9.5 8.4 - 10.2 mg/dL [facility] Blood Venous blood specimen / Unknown 06/12/2025 1:26 PM EDT 06/12/2025 4:19 PM EDT Tracy Edgarkerri DO LAB BLOOD ORDERABLES Final R esult Performing Organization Address [facility] Co de Phone Number [facility] [address] [place] [address] [phone] * Chlamydia/N. Gonorrhoeae RNA, TMA, Urogenitial (06/08/2024 10:53 AM EDT) CT PCR NOT DETECTED Not Detect. [facility] Comment:A not detected test result [...] psychologicalconsequences. NG PCR NOT DETECTED Not Detect. [facility] Comment:A not detected test result [...] AM EDT 06/08/2024 4:20 PM EDT Narrative [facility] - 06/09/2024 3:10 AM EDT Urine us Jacqueline Georges [facility] MICROBIOLOGY - GENERA L ORDERABLES Final Result [facility] [address] [place] [phone] from Last 3 Months or Most Recently Relevant to Health Maintenance Insurance [facility] C3 Care Teams Licensed Massage Practitioner Relationship Specialty Start Date End Date Tracy Saldana DO [address] [place] [phone] PCP - General Family Medicine 04/04/13
--- OUTSIDE RECORDS SUMMARY | 2025-09-12 11:14 | XMS_ITS | Encounter Summary ---
Author Organization [employer] Address [address] [facility] 7 [place] [address] Care Team Providers Care Communication Consultant Name Role Phone Tracy Saldana DO Primary Care Provider [phone] Reason for Visit * Reason Onset Date Comments Med Refill 07/23/2025 Encounter Details Date Type Department Care Team ([facility] st Contact Info) Description 07/23/2025 Refill [facility] [address] [place], [place] [phone] Tracy Saldana DO [address] [place] [address] Social History Tobacco Use Types Packs/Day Years [...] Description 09/13/2025 1:45 PM EDT Office Visit [facility] [address] [place] [address] Jacqueline Georges CNM [address] [place] [address] documented as of this encounter Visit Diagnoses Not on filedocumented in this encounter Additional Health Concerns Assessment Noted Time PHQ-9 Depression Total Score: 11 025 1:41 PM EDT documented as of this encounter Care Teams Communication Consultant Relationship Specialty Start Date End Date Tracy Saldana DO [address] [place] [address] PCP - General Family Medicine 04/04/13 documented as of this encounter
--- OUTSIDE RECORDS SUMMARY | 2025-09-12 11:14 | XMS_ITS | Encounter Summary ---
Author Organization [employer] Address [address] [facility] [address] [place] [address] Care Team Providers Care Cement Fittings Maker Name Role Phone Tracy Saldana DO Primary Care Provider [phone] Reason for Visit * Reason Onset Date Comments Med Refill 07/24/2025 Encounter Details Date Type Department Care Team ([facility] st Contact Info) Description 07/24/2025 Refill [facility] [address] [place], [place] [phone] Tracy Saldana DO [address] [place], [place] [phone] Social History Tobacco Use Types Packs/Day Years [...] Description 09/13/2025 1:45 PM EDT Office Visit [facility] [address] [place] [address] Jacqueline Georges CNM [address] [place] [address] documented as of this encounter Visit Diagnoses Not on filedocumented in this encounter Additional Health Concerns Assessment Noted Time PHQ-9 Depression Total Score: 11 025 1:41 PM EDT documented as of this encounter Care Teams Cement Fittings Maker Relationship Specialty Start Date End Date Tracy Saldana DO [address] [place] [address] PCP - General Family Medicine 04/04/13 documented as of this encounter
== END 2025-09-12 10:31 | disposition home or self-care (01) ==
LOC: HO.HOS 09:46
PROVIDERS: Visit Provider Orthopaedic Surgery
DX: S63.602A Unspecified sprain of left thumb, initial encounter (principal); S63.502A Unspecified sprain of left wrist, initial encounter; M65.4 Radial styloid tenosynovitis [de Quervain]
CPT/HCPCS: 99213

== ENCOUNTER → 2025-09-12 09:45 | Outpatient (BNVA) | payer MEDICAID, SELFPAY | PROVIDERS: Visit Provider Orthopaedic Surgery | DX: S63.602D Unspecified sprain of left thumb, subsequent encounter (principal); S63.502D Unspecified sprain of left wrist, subsequent encounter; M65.4 Radial styloid tenosynovitis [de Quervain] | CPT/HCPCS: 99212 ==